=== PATIENT | female | born 2000 | race Caucasian/White ===

== ENCOUNTER 2022-12-12 07:35 | Inpatient (IN) ==
[2022-12-12] MEDS ORDERED: LIDOCAINE 1% LOCAL 20 ML VIAL INFIL PRN (08:59)
[2022-12-12] MEDS ORDERED: OXYTOCIN 30 UNITS/500 ML BAG IV PRN ×2 (08:59→23:27)
[2022-12-12] MEDS ORDERED: DINOPROSTONE 10 MG INSERT PV ONE (08:59)
[2022-12-12] MEDS ORDERED: ceFAZolin 2000MG 2,000 MG/15 ML SYR IV STA (09:04)
--- NOTE | 2022-12-12 09:25 | History & Physical Report ---
Date of Service December 12, 2022 Assessment & Plan (1) Post-term , 40-42 weeks of gestation: Plan: 22 yo at 40.6 wks, IOL for postdates VSS Afebrile FHR reassuring GBS +, mild allergy to amoxicillin, plan to give Cefazolin Plan to admit, monitor, labs, Cervidil for cervical ripening All questions were answered. (2) GBS (group B Streptococcus carrier), +RV culture, currently : (3) Brachial plexus injury, left: Plan: EFW 3700 gr today Admission and Anticipated Discharge Date Admission Date: December 12, 2022 History of Present Illness Primary Care Provider: NO PCP Patient is a 22 yo at 40.6 wks who is scheduled for IOL for postdates. No complaints. No ctxs/ LOF/VB +FM's Her has been uncomplicated except GBS+ h/o shoulder dystocia as a new born with left brachia plexus injury, she was a 9 lb infant She has been measuring normal during this . EFW by bed side US today is 3700 gr. Allergies Allergy/AdvReac Type Severity Reaction Status Date / Time amoxicillin [From Augmentin] Allergy Hives Verified 12/12/22 07:51 clavulanic acid Allergy Hives Verified 12/12/22 07:51 [From Augmentin] Home Medications Medication Instructions Recorded Confirmed Type albuterol sulfate 90 mcg/actuation 2 puff inhalation 6XD PRN 12/12/22 12/12/22 History aerosol inhaler Congestion docusate sodium 100 mg capsule 100 mg PO BID 12/12/22 12/12/22 History (Colace) ferrous sulfate 325 mg (65 mg 325 mg PO DAILY 12/12/22 12/12/22 History iron) tablet (iron) fluticasone propionate 50 1 spray intranasal DAILY 12/12/22 12/12/22 History mcg/actuation nasal spray,suspension prenat.vits,mellisa,[id number] 1 tab PO DAILY 12/12/22 12/12/22 History Patient History Medical History (Updated 12/12/22 @ 09:22 by Darci Pollock MD) Asthma Brachial plexus injury, left (~12/12/22) shoulder dystocia at Chronic rhinitis No pertinent past medical history Surgical History No pertinent past surgical history S/P tonsillectomy and adenoidectomy Family History Father Myocardial infarction Mother Hypothyroid Social History (Updated 12/12/22 @ 07:49 by Crys Mart RN) Smoking Status: Never smoker Hx Alcohol Use: No Hx Substance Use: No Preferred Language: Iranian Communication Ability: Effective Visual Impairment: No Limitations Hearing Ability: Normal Echocardiologist Required: No Beliefs That Will Affect Care: None marital status: Single Current Living Situation: Parent Current Living Situation Comment: Lives with mother, Sandeep and 3 cats current occupational status: employed 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 [place] Other Information That Helps Us Care for You: No Feels Safe at Home: Yes Safety Concerns: Feels Safe At This Time Childhood Exposure to Second-Hand Smoke: No Gender Identity: Female Assistive Devices: None RN OPERATING ROOM History No STD's Review of Systems as per Subjective / HPI Physical Exam Constitutional: well developed, well nourished and comfortable Gastrointestinal (Abdomen): normal bowel sounds, soft, nontender, no hepatosplenomegaly (gravid, Judson 8 lb) Genitourinary: normal external appearance OB Exam Abdomen: + vertex Manual OB Exam: + cervical dilation 1 cm, + cervical effacement 30% and + station -2 OB Exam Monitor Tracing: + external uterine monitor used and + category I Results & Data Vital Signs (Past 12 Hours) Vital Signs Temp Pulse Resp BP 12/12/22 08:13 37 C 83 20 117/73 12/12/22 07:42 83 117/73
[2022-12-12 09:28] LABS: Hematocrit (blood only) 32.5 % (37.0-47.0); Hemoglobin 11.2 g/dl (12.0-16.0); Mean Corpuscular Hemoglobin 30.2 pg (25.0-34.0); Mean Corpuscular Hgb Conc 34.5 g/dL (32.0-36.0); Mean Corpuscular Volume 87.6 fL (80.0-100.0); Mean Platelet Volume 12.1 fL (9.4-12.4); Platelet Count 154 K/uL (130-400); RDW Coefficient of Variation 13.2 % (11.5-14.5); RDW Standard Deviation 42.1 fL (36.4-46.3); Red Blood Count 3.71 M/uL (4.20-5.40); White Blood Count 9.83 K/ul (4.8-10.8)
--- NOTE | 2022-12-12 16:55 | Obstetrical Progress Note ---
Date of Service December 12, 2022 Assessment & Plan Admission and Anticipated Discharge Date Admission Date: December 12, 2022 Subjective Patient has been walking in hallways comfortably. Mild irregular ctxs, not painful No LOF/VB +VB FHR categ I Continue to monitor closely Results & Data Vital Signs (Past 12 Hours) Vital Signs Temp Pulse Resp BP 12/12/22 15:45 37 C 20 12/12/22 08:13 37 C 83 20 117/73 12/12/22 15:12 62 12/12/22 15:12 124/81 12/12/22 14:02 63 12/12/22 14:02 121/77 12/12/22 12:06 71 12/12/22 12:06 36.9 C 20 117/68 12/12/22 10:49 74 12/12/22 10:49 114/70 12/12/22 10:36 83 12/12/22 10:36 111/71 12/12/22 10:13 76 12/12/22 10:13 116/76 12/12/22 07:42 83 117/73
[2022-12-12] MEDS ORDERED: BUTORPHANOL TARTRATE 1 MG/ML VIAL IV PRN (17:35)
--- NOTE | 2022-12-13 00:17 | Obstetrical Progress Note ---
Date of Service December 13, 2022 Assessment & Plan Admission and Anticipated Discharge Date Admission Date: December 12, 2022 Subjective Late entry from 23:30 Patient has been feeling ctxs more often and stronger for the last 2 hours Cervidil was removed and she ate dinner No LOF/VB +FM's VE; 2/ 50%/ -2, anterior FHR categ I TOCO: ctxs q 3-5 min, palpated mild to moderate Plan to augment with Oxytocin and start AB for GBS Epidural per patient request Results & Data Vital Signs (Past 12 Hours) Vital Signs Temp Pulse Resp BP 12/12/22 15:45 37 C 20 12/12/22 23:19 68 12/12/22 23:19 130/80 12/12/22 20:00 18 12/12/22 20:00 18 12/12/22 19:30 18 12/12/22 19:30 36.7 C 18 12/12/22 19:28 85 12/12/22 19:28 137/87 12/12/22 17:42 72 12/12/22 17:42 37 C 20 134/87 12/12/22 15:12 62 12/12/22 15:12 124/81 12/12/22 14:02 63 12/12/22 14:02 121/77
[2022-12-13] MEDS ORDERED: fentaNYL citrate PF 100 MCG/2 ML VIAL ONE (06:00)
[2022-12-13] MEDS ORDERED: ePHEDrine sulfate 50 MG/ML AMP ONE (06:00)
[2022-12-13] MEDS ORDERED: BUPIVACAINE 0.25% PF 30 ML VIAL ONE (06:01)
[2022-12-13] MEDS ORDERED: LIDOCAINE 2%/EPINEPHRINE 1:200,000 20 ML PF ONE (06:01)
[2022-12-13] MEDS ORDERED: SODIUM CHLORIDE 0.9% PF INJ 10 ML VIAL ONE (06:01)
[2022-12-13] MEDS ORDERED: fentaNYL 2MCG/ML ROPIVACAINE 1.25MG/ML 100 ML BAG EPI ONE (06:02)
[2022-12-13] MEDS ORDERED: ONDANSETRON INJ 2 MG/ML 2 ML VIAL IV PRN (06:24)
[2022-12-13] MEDS ORDERED: ePHEDrine sulfate 50 MG/ML AMP IV PRN (06:24)
[2022-12-13] MEDS ORDERED: fentaNYL 2MCG/ML ROPIVACAINE 1.25MG/ML 100 ML BAG EPI PRN (06:24)
[2022-12-13] MEDS ORDERED: NALOXONE HCL 1 MG in SODIUM CHLORIDE 0.9% 1000ML 1,000 ML IV PRN (06:24)
[2022-12-13] MEDS ORDERED: NALOXONE HCL 0.4 MG/1 ML VIAL/CARP IV PRN (06:24)
[2022-12-13] MEDS ORDERED: diphenhydrAMINE 50 MG/ML VIAL IV PRN (06:24)
[2022-12-13] MEDS ORDERED: NALBUPHINE HCL INJ 10 MG/ML AMP IV PRN (06:24)
--- NOTE | 2022-12-13 06:24 | Anesthesiology Consultation ---
Date of Service December 13, 2022 Assessment & Plan ASA ASA2 Proposed Anesthesia Anesthesia Type: Labor Epidural Risk / Benefits Reviewed With: PT / POA / Parent / Guardian, Accepts Plan and Informed Consent Obtained History Height/Weight Height: 5 ft 6 in Weight: 107.774 kg Allergies Allergy/AdvReac Type Severity Reaction Status Date / Time amoxicillin [From Augmentin] Allergy Hives Verified 12/12/22 07:51 clavulanic acid Allergy Hives Verified 12/12/22 07:51 [From Augmentin] Medications Home Medications Medication Instructions Recorded Confirmed Last Taken albuterol sulfate 90 mcg/actuation 2 puff inhalation 6XD PRN 12/12/22 12/12/22 Unknown aerosol inhaler Congestion docusate sodium 100 mg capsule 100 mg PO BID 12/12/22 12/12/22 11/29/22 19:30 (Colace) ferrous sulfate 325 mg (65 mg 325 mg PO DAILY 12/12/22 12/12/22 12/11/22 19:30 iron) tablet (iron) fluticasone propionate 50 1 spray intranasal DAILY 12/12/22 12/12/22 12/06/22 19:30 mcg/actuation nasal spray,suspension prenat.vits,mellisa,[id number] 1 tab PO DAILY 12/12/22 12/12/22 12/11/22 19:30 Active Medications Generic Name Dose Route Start Last Admin Trade Name Freq PRN Reason Stop Dose Admin Lactated Ringer's 1,000 mls @ 150 mls/hr 12/12/22 08:59 12/13/22 11:06 Lr IV 12/14/22 08:58 150 mls/hr .Q6H40M PRN Administration L&D Protocol Protocol Oxytocin 30 units in 500 mls @ 13 mls/hr 12/12/22 23:27 12/13/22 09:40 Pitocin IV 12/14/22 23:26 0.78 units/hr .Q24H PRN 13 mls/hr Labor Induction/Augmentation Titration Protocol 0.78 UNITS/HR Cefazolin Sodium 2,000 mg in 15 mls @ 3.75 mls/min 12/13/22 08:00 12/13/22 08:05 Ancef 2000mg IV 12/23/22 07:59 3.75 mls/min Q8H ALEX Administration Ibuprofen 600 mg 12/13/22 12:54 12/13/22 15:14 Ibuprofen 600 Mg Tab PO 01/12/23 12:53 600 mg Q4H PRN Administration Pain/OLMSTEAD/Cramping/Fever Ondansetron HCl 4 mg 12/13/22 06:24 12/13/22 08:43 Ondansetron Inj 2 Mg/Ml 2 Ml Vial IV 12/14/22 06:23 4 mg Q6H PRN Administration Nausea &/or Vomiting Past Medical History Medical History (Updated 12/12/22 @ 09:22 by Darci Pollcok MD) Asthma Brachial plexus injury, left (~12/12/22) shoulder dystocia at Chronic rhinitis No pertinent past medical history Exercise / Class Metabolic Activity II 4-5 Yardwork/Stairs/Walk up hill Past Family History Family History Father Myocardial infarction Mother Hypothyroid Past Surgical History Surgical History No pertinent past surgical history S/P tonsillectomy and adenoidectomy Past Anesthesia History No Hx of Anesthesia Complications and No Family Hx of Anesthesia Complications History of PONV No Hx of PONV and No Hx of Motion Sickness Social History Smoking Status: Never smoker Hx Alcohol Use: No Hx Substance Use: No substance use type: does not use Review of Systems denies fever/cough/ colds/ chest pain/ SOB/ SHARON denies SHARON Physical Exam Vital Signs Last Vital Signs Temp 36.8 C 12/13/22 16:00 Pulse 74 12/13/22 16:00 Resp 16 12/13/22 16:00 BP 120/82 12/13/22 16:00 Pulse Ox 99 12/13/22 16:00 O2 Del Method Room Air 12/13/22 16:00 ENMT Mouth: no TMJ abnormality and no dentition abnormality Thyromental Distance: > or= 3.5 Finger Breadths Mallampati Class: II Neck neck extension not limited Respiratory normal respiratory effort; no respiratory distress Auscultation: lungs clear to auscultation bilaterally Cardiovascular Rate/Rhythm: regular rate and regular rhythm Neurologic moves all extremities Psychiatric Orientation: alert and oriented x 3 Testing Laboratory Results 12/12/22 09:11 Blood Type A Positive 12/12/22 09:11 Blood Type Cancelled 12/12/22 09:11 Antibody Screen Cancelled 12/12/22 09:11 Antibody Screen NEGATIVE 12/12/22 09:11
[2022-12-13] MEDS: LACTATED RINGER'S 1,000 ML IV PRN ×3 (06:38→11:06)
--- NOTE | 2022-12-13 07:35 | Obstetrical Progress Note ---
Date of Service December 13, 2022 Assessment & Plan Admission and Anticipated Discharge Date Admission Date: December 12, 2022 Subjective Patient is comfortable now, received epidural for pain. VSS Afebrile FHR categ I Mcdermott ctxs q 2-3 min VE: 3/ 70%/-1, AROM'ed clear fluid Continue to augment with Oxytocin and monitor closely Results & Data Vital Signs (Past 12 Hours) Vital Signs Temp Pulse Resp BP Pulse Ox 12/13/22 07:33 83 120/87 12/13/22 07:31 71 95 12/13/22 07:30 76 116/83 94 12/13/22 07:26 72 95 12/13/22 07:27 63 117/76 12/13/22 07:24 80 113/76 12/13/22 07:21 95 12/13/22 07:21 82 12/13/22 07:21 79 121/82 12/13/22 07:18 76 125/71 12/13/22 07:16 94 H 96 12/13/22 07:15 75 124/75 12/13/22 07:13 79 94 12/13/22 07:11 81 96 12/13/22 07:12 84 121/73 12/13/22 07:09 84 134/69 12/13/22 07:08 88 94 12/13/22 07:06 101 H 96 12/13/22 07:03 97 H 127/74 12/13/22 07:01 95 H 96 12/13/22 07:00 101 H 123/78 12/13/22 06:56 87 95 12/13/22 06:57 85 120/71 12/13/22 06:54 84 120/75 12/13/22 06:51 97 12/13/22 06:51 87 12/13/22 06:51 90 129/78 12/13/22 06:48 82 126/82 12/13/22 06:46 86 98 12/13/22 06:45 93 H 136/82 12/13/22 06:41 86 98 12/13/22 06:42 77 126/71 12/13/22 06:36 86 100 12/13/22 06:00 93 H 125/77 12/13/22 05:40 229 H 90 12/13/22 05:31 196 H 87 L 12/13/22 05:01 77 138/86 12/13/22 04:31 63 122/75 12/13/22 03:16 68 107/63 12/13/22 02:46 63 113/57 L 12/13/22 02:17 65 109/64 12/13/22 01:46 68 106/60 12/13/22 01:16 65 118/63 12/13/22 00:46 66 107/58 L 12/13/22 00:00 18 12/13/22 00:00 36.7 C 18 12/13/22 00:16 87 122/62 12/12/22 23:19 68 12/12/22 23:19 130/80 12/12/22 20:00 18 12/12/22 20:00 18
[2022-12-13] MEDS ORDERED: ceFAZolin 2000MG 2,000 MG/15 ML SYR IV SCH (08:00)
[2022-12-13] MEDS ORDERED: ALBUTEROL HFA 8 GM INHALER INH PRN (12:53)
[2022-12-13] MEDS ORDERED: ACETAMINOPHEN 325 MG TAB PO PRN (12:54)
[2022-12-13] MEDS ORDERED: oxyCODONE/ACETAMINOPHEN 5mg/325mg TAB PO PRN (12:54)
[2022-12-13] MEDS ORDERED: DIPHTHERIA/TETANUS/PERTUSSIS 0.5mL SYR/VIAL (Age 7+yrs) IM ONE (12:54)
[2022-12-13] MEDS ORDERED: BENZOCAINE 20% AER SPR 82.5 GM CAN EXT PRN (12:54)
[2022-12-13] MEDS ORDERED: HYDROCORTISONE ACETATE 25 MG SUPP PR PRN (12:54)
[2022-12-13] MEDS ORDERED: OXYTOCIN 30 UNITS/500 ML BAG IV PRN (12:54)
--- NOTE | 2022-12-13 12:56 | Delivery Summary ---
Vaginal Delivery Summary Date of Service December 13, 2022 Vaginal Delivery Summary Delivery Note History synopsis: Patient is a 22-year-old -0-1-0 admitted at 40 weeks and 6 days for induction of labor for postterm. She received Cervidil on admission, progressed to 2 cm and started on oxytocin for augmentation. She received an epidural for pain control and review received AROM with clear fluid earlier this morning and was 3 cm. Patient continued to have early decelerations, it was noted to be complete by nursing staff this afternoon. Was called for delivery Delivery Summary: Patient was placed in the dorsal lithotomy position. She was prepped and draped in the usual sterile fashion. Upon maternal pushing the head was delivered atraumatically followed by the anterior shoulders, posterior shoulders then the remainder of the infants body. The infant was immediately placed on mother's abdomen, dried and stimulated. Delayed cord clamping for 60 seconds was performed. The infants mouth and nose were bulb suctioned by nursing staff. A male was delivered at 1235, weighing pending with APGARS of 8 at 1 minute and 9 at 5 minutes. The was handed off to the awaiting nursing staff staff. Cord blood gases were not obtained. The placenta delivered intact with three vessel cord at 1240. Placenta was sent to pathology (hold). Thirty units of Pitocin were added to the IV fluid and allowed to run freely. Uterine massage was performed until uterus was deemed firm. Upon inspection of the perineum, hemostatic periurethral laceration was noted, and a second-degree degree laceration which was repaired with 3-0 Vicryl in the usual fashion. Periurethral laceration was still hemostatic, therefore not repaired. Upon re- inspection the patient was hemostatic. Uterus again massaged and found to be firm. Needle and sponge counts were correct. Patient was stable and allowed to recover in L&D room. Infant was stable and remained in room with mother in the labor and delivery unit.
--- NOTE | 2022-12-13 13:46 | Anesthesia Procedure Note ---
Date of Service December 13, 2022 Anesthesia Post Epidural Note Vital Signs Vital Signs: Temp Pulse Resp BP Pulse Ox 36.7 C 67 20 112/69 98 12/13/22 11:31 12/13/22 13:40 12/13/22 13:40 12/13/22 13:40 12/13/22 12:46 Pain Intensity Lower Abdomen: Pain Intensity: 0 Notes Mental Status: alert / awake / arousable Nausea / Vomiting: adequately controlled Pain: adequately controlled Airway Patency, RR, SpO2: stable & adequate BP & HR: stable & adequate Hydration State: stable & adequate Neuraxial Anesthesia: was administered and sensory block is resolving Anesthetic Complications: no major complications apparent and Pt Satisfied with anesthetic care Epidural: Removed without complications and With tip intact
[2022-12-13] MEDS: IBUPROFEN 600 MG TAB PO PRN ×2 (15:14→21:04)
[2022-12-13] MEDS: DOCUSATE SODIUM 100 MG CAP PO SCH (21:04)
[2022-12-14 07:29] LABS: Hematocrit (blood only) 31.7 % (37.0-47.0); Hemoglobin 10.5 g/dl (12.0-16.0); Mean Corpuscular Hemoglobin 29.4 pg (25.0-34.0); Mean Corpuscular Hgb Conc 33.1 g/dL (32.0-36.0); Mean Corpuscular Volume 88.8 fL (80.0-100.0); Mean Platelet Volume 12.4 fL (9.4-12.4); Platelet Count 151 K/uL (130-400); RDW Coefficient of Variation 13.2 % (11.5-14.5); Red Blood Count 3.57 M/uL (4.20-5.40)
--- NOTE | 2022-12-14 08:33 | Obstetrical Progress Note ---
Date of Service December 14, 2022 Assessment & Plan Admission and Anticipated Discharge Date Admission Date: December 12, 2022 Subjective Patient is seen and examined. She feels well, no complaints. Ambulating without dizziness Voiding without difficulty Tolerating regular diet with out N&V Bleeding is minimal No fever/ chills/ CP/ SOB/ N&V/ Leg pain Breast feeding without problems Vital Signs Temp Pulse Resp BP Pulse Ox O2 Del Method 12/14/22 03:55 36.5 C 66 16 116/68 98 Room Air 12/14/22 00:10 36.7 C 68 16 106/69 98 Room Air 12/13/22 20:40 36.8 C 73 16 113/77 98 Room Air Lab Results 12/12/22 12/12/22 12/12/22 Range/Units 08:35 09:11 09:11 WBC 9.83 (4.8-10.8) K/ul RBC 3.71 L (4.20-5.40) M/uL Hgb 11.2 L (12.0-16.0) g/dl Hct 32.5 L (37.0-47.0) % MCV 87.6 (80.0-100.0) fL MCH 30.2 (25.0-34.0) pg MCHC 34.5 (32.0-36.0) g/dL RDW Std Deviation 42.1 (36.4-46.3) fL RDW Coeff of Ethan 13.2 (11.5-14.5) % Plt Count 154 (130-400) K/uL MPV 12.1 (9.4-12.4) fL SARS-CoV-2, RNA, NAAT NEGATIVE (NEGATIVE) Blood Type A Positive Antibody Screen NEGATIVE 12/12/22 12/14/22 Range/Units 09:11 06:39 WBC 10.90 H (4.8-10.8) K/ul RBC 3.57 L (4.20-5.40) M/uL Hgb 10.5 L (12.0-16.0) g/dl Hct 31.7 L (37.0-47.0) % MCV 88.8 (80.0-100.0) fL MCH 29.4 (25.0-34.0) pg MCHC 33.1 (32.0-36.0) g/dL RDW Std Deviation 43.0 (36.4-46.3) fL RDW Coeff of Ethan 13.2 (11.5-14.5) % Plt Count 151 (130-400) K/uL MPV 12.4 (9.4-12.4) fL SARS-CoV-2, RNA, NAAT (NEGATIVE) Blood Type Cancelled Antibody Screen Cancelled PE: General: Alert, orientedx3, NAD Abd: soft, NT, fundus firm, below Umbilicus Perineum intact, Lochia rubra minimal Ext; NT, no edema AP: 22 yo s/p , ppd# 1 VSS Afebrile doing well Continue routine care All questions were answered D/C home tomorrow Results & Data Vital Signs (Past 12 Hours) Vital Signs Temp Pulse Resp BP Pulse Ox O2 Del Method 12/14/22 03:55 36.5 C 66 16 116/68 98 Room Air 12/14/22 00:10 36.7 C 68 16 106/69 98 Room Air 12/13/22 20:40 36.8 C 73 16 113/77 98 Room Air
[2022-12-14] MEDS: IBUPROFEN 600 MG TAB PO PRN ×2 (09:38→23:29)
[2022-12-14] MEDS: DOCUSATE SODIUM 100 MG CAP PO SCH ×2 (09:39→20:10)
[2022-12-14] MEDS: PRENATAL VITAMIN 1 TAB PO SCH (09:39)
[2022-12-14] MEDS ORDERED: bisacodyL 5 MG TABEC PO SCH (20:00)
[2022-12-14] MEDS: FERROUS SULFATE 325 MG TAB PO SCH (20:10)
[2022-12-15 06:53] LABS: Hematocrit (blood only) 30.1 % (37.0-47.0); Hemoglobin 9.9 g/dl (12.0-16.0)
[2022-12-15] MEDS: DOCUSATE SODIUM 100 MG CAP PO SCH (08:48)
[2022-12-15] MEDS: FERROUS SULFATE 325 MG TAB PO SCH (08:48)
[2022-12-15] MEDS: PRENATAL VITAMIN 1 TAB PO SCH (08:48)
--- NOTE | 2022-12-15 10:43 | Obstetrical Progress Note ---
Date of Service December 15, 2022 Assessment & Plan Admission and Anticipated Discharge Date Admission Date: December 12, 2022 Subjective Patient is seen and examined. She feels well, no complaints. Ambulating without dizziness Voiding without difficulty Tolerating regular diet with out N&V Bleeding is minimal No fever/ chills/ CP/ SOB/ N&V/ Leg pain Breast feeding without problems Vital Signs Temp Pulse Resp BP O2 Del Method 12/15/22 08:30 37 C 94 H 18 118/87 Room Air 12/14/22 23:27 36.6 C 76 16 107/71 Room Air 12/14/22 20:01 36.9 C 80 16 110/74 Room Air 12/14/22 17:19 36.8 C 70 17 117/74 Room Air 12/14/22 12:00 37 C 74 20 118/76 Room Air Lab Results 12/12/22 12/12/22 12/12/22 Range/Units 08:35 09:11 09:11 WBC 9.83 (4.8-10.8) K/ul RBC 3.71 L (4.20-5.40) M/uL Hgb 11.2 L (12.0-16.0) g/dl Hct 32.5 L (37.0-47.0) % MCV 87.6 (80.0-100.0) fL MCH 30.2 (25.0-34.0) pg MCHC 34.5 (32.0-36.0) g/dL RDW Std Deviation 42.1 (36.4-46.3) fL RDW Coeff of Ethan 13.2 (11.5-14.5) % Plt Count 154 (130-400) K/uL MPV 12.1 (9.4-12.4) fL SARS-CoV-2, RNA, NAAT NEGATIVE (NEGATIVE) Blood Type A Positive Antibody Screen NEGATIVE 12/12/22 12/14/22 12/15/22 Range/Units 09:11 06:39 06:08 WBC 10.90 H (4.8-10.8) K/ul RBC 3.57 L (4.20-5.40) M/uL Hgb 10.5 L 9.9 L (12.0-16.0) g/dl Hct 31.7 L 30.1 L (37.0-47.0) % MCV 88.8 (80.0-100.0) fL MCH 29.4 (25.0-34.0) pg MCHC 33.1 (32.0-36.0) g/dL RDW Std Deviation 43.0 (36.4-46.3) fL RDW Coeff of Ethan 13.2 (11.5-14.5) % Plt Count 151 (130-400) K/uL MPV 12.4 (9.4-12.4) fL SARS-CoV-2, RNA, NAAT (NEGATIVE) Blood Type Cancelled Antibody Screen Cancelled PE: General: Alert, orientedx3, NAD Abd: soft, NT, fundus firm, below Umbilicus Perineum intact, Lochia rubra minimal Infected hair follicle at mons pubis Ext; NT, no edema AP: 22 yo s/p , ppd# 2 VSS Afebrile doing well Continue routine care All questions were answered Discussed when to call D/C home , f/u in office Results & Data Vital Signs (Past 12 Hours) Vital Signs Temp Pulse Resp BP O2 Del Method 12/15/22 08:30 37 C 94 H 18 118/87 Room Air 12/14/22 23:27 36.6 C 76 16 107/71 Room Air
[2022-12-15] MEDS ORDERED: cephALEXin 500 MG CAP PO STA (10:45)
== END 2022-12-15 13:10 | disposition home or self-care (01) | DRG 807 ==
LOC: 4S1 07:35 → 4E2 12-13 16:37

== ENCOUNTER 2024-10-08 12:05 | Inpatient (IN) ==
[2024-10-08] MEDS ORDERED: OXYTOCIN 30 UNITS/NSS 30 UNITS/500 ML BAG IV PRN (15:22)
[2024-10-08] MEDS ORDERED: LIDOCAINE 1% LOCAL 20 ML VIAL INFIL PRN (15:22)
--- NOTE | 2024-10-08 15:28 | History & Physical Report ---
Date of Service October 08, 2024 Assessment & Plan (1) Encounter for elective induction of labor: Plan: Anguiano and Oxytocin planned (2) GBS (group B Streptococcus carrier), +RV culture, currently : Plan: Antibiotics Admission and Anticipated Discharge Date Admission Date: October 08, 2024 History of Present Illness Chief Complaint: elective induction of labor Primary Care Provider: [facility] PCP 24 F P1001 at 40.1 weeks here for elective induction of labor. GBS is positive. Allergies Allergy/AdvReac Type Severity Reaction Status Date / Time amoxicillin [From Augmentin] Allergy Mild Rash Verified 10/08/24 15:21 clavulanic acid Allergy Mild Rash Verified 10/08/24 15:21 [From Augmentin] Home Medications Medication Instructions Recorded Confirmed Type albuterol sulfate 90 mcg/actuation 2 puff inhalation 6XD PRN 12/12/22 10/08/24 History aerosol inhaler Congestion fluticasone propionate 50 1 spray intranasal DAILY PRN 12/12/22 10/08/24 History mcg/actuation nasal Congestion spray,suspension prenat.vits,mellisa,[id number] 1 tab PO DAILY 12/12/22 10/08/24 History Patient History Medical History GBS (group B Streptococcus carrier), +RV culture, currently Post-term , 40-42 weeks of gestation Brachial plexus injury, left (~12/12/22) shoulder dystocia at Chronic rhinitis Asthma No pertinent past medical history Surgical History S/P tonsillectomy and adenoidectomy No pertinent past surgical history Family History Father Myocardial infarction Mother Hypothyroid Social History Smoking Status: Never smoker Hx Alcohol Use: No Hx Substance Use: No Preferred Language: [place] Communication Ability: Effective Visual Impairment: No Limitations Hearing Ability: Normal Cooker Mechanic Required: No Beliefs That Will Affect Care: None marital status: Single Current Living Situation: Spouse Current Living Situation Comment: 2yo son current occupational status: employed 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 [place] Feels Safe at Home: Yes Safety Concerns: Feels Safe At This Time Childhood Exposure to Second-Hand Smoke: No Diet: regular Gender Identity: Female Assistive Devices: None 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 History neg Physical Exam Constitutional: WD/WN, vitals as above Eyes: PERRL, conjunctivae normal, anicteric sclerae Respiratory: normal respiratory effort, lungs clear to auscultation Cardiovascular: Rate/Rhythm: regular rate and regular rhythm Gastrointestinal (Abdomen): Inspection/Auscultation: abdomen normal to inspection Musculoskeletal: Extremities: extremities normal to inspection Skin: no rashes, warm and dry Neurologic: patellar DTR's 2+ bilat, sensation intact Psychiatric: A+Ox3, euthymic affect Genitourinary: no vaginal lesions, no adnexal mass OB Exam Abdomen: + fundal height and + vertex Manual OB Exam: + cervical dilation 1 cm, + cervical effacement 50% and + station high OB Exam Monitor Tracing: + external FHT monitor used, + external uterine monitor used, + category I and + normal FHT variability EFW 7 lbs. Results & Data Vital Signs (Past 12 Hours) Vital Signs Temp Pulse Resp BP 10/08/24 15:07 81 123/78 10/08/24 14:59 37.1 C 18 Code Status & VTE Plan VTE Prophylaxis Plan VTE Prophylaxis will be ordered: No Monitoring External Monitor Cat 1
[2024-10-08 15:54] LABS: Hematocrit (blood only) 33.4 % (37.0-47.0); Mean Corpuscular Hemoglobin 29.2 pg (25.0-34.0); Mean Corpuscular Hgb Conc 32.9 g/dL (32.0-36.0); Mean Corpuscular Volume 88.6 fL (80.0-100.0); Platelet Count 166 K/uL (130-400); RDW Coefficient of Variation 12.5 % (11.5-14.5); RDW Standard Deviation 40.2 fL (36.4-46.3); Red Blood Count 3.77 M/uL (4.20-5.40); White Blood Count 10.55 K/ul (4.8-10.8)
--- NOTE | 2024-10-08 16:09 | Labor Progress Brief Note ---
Date of Service October 08, 2024 Assessment & Plan Admission and Anticipated Discharge Date Admission Date: October 08, 2024 Physical Exam Genitourinary: OB Exam Monitor Tracing: + external FHT monitor used, + external uterine monitor used, + category I and + normal FHT variability Anguiano placed in cervix with 40 ml. saline for induction Will start Oxytocin and antibiotics Results & Data Vital Signs (Past 12 Hours) Vital Signs Temp Pulse Resp BP 10/08/24 15:07 81 123/78 10/08/24 14:59 37.1 C 18
[2024-10-08] MEDS: PENICILLIN GK 6 MU in SODIUM CHLORIDE 0.9% 250 ML IV STA (16:37)
[2024-10-08] MEDS: OXYTOCIN 30 UNITS/NSS 30 UNITS/500 ML BAG IV PRN (16:37)
[2024-10-08] MEDS: SODIUM CHLORIDE 0.9% 1,000 ML IV SCH (16:37)
[2024-10-08] MEDS ORDERED: ePHEDrine sulfate 50 MG/ML AMP ONE (20:15)
[2024-10-08] MEDS: PENICILLIN GK 3 MU in DEXTROSE 5% 100 ML IV PRN (20:34)
[2024-10-08] MEDS ORDERED: fentANYL 2 MCG/ML BUPIVacaine 0.125%-NSS 100ML BAG EPI PRN (21:38)
[2024-10-08] MEDS ORDERED: ePHEDrine sulfate 50 MG/ML AMP IV PRN (21:38)
[2024-10-08] MEDS ORDERED: diphenhydrAMINE 50 MG/ML VIAL IV PRN (21:38)
[2024-10-08] MEDS ORDERED: ROPIVACAINE 0.5% PF 5 MG/ML 20 ML VIAL EPI PRN (21:38)
[2024-10-08] MEDS ORDERED: SODIUM CHLORIDE 0.9% PF INJ 10 ML VIAL EPI PRN (21:38)
[2024-10-08] MEDS ORDERED: fentaNYL citrate PF 100 MCG/2 ML VIAL EPI PRN (21:38)
[2024-10-08] MEDS ORDERED: LIDOCAINE 2% MPF LOCAL 5 ML VIAL EPI PRN (21:38)
[2024-10-08] MEDS ORDERED: NALOXONE HCL 1 MG in SODIUM CHLORIDE 0.9% 1,000 ML IV PRN (21:38)
[2024-10-08] MEDS ORDERED: NALBUPHINE HCL INJ 10 MG/ML AMP IV PRN (21:38)
[2024-10-08] MEDS ORDERED: BUPIVACAINE 0.25% PF 30 ML VIAL EPI PRN (21:38)
[2024-10-08] MEDS ORDERED: NALOXONE HCL 0.4 MG/1 ML VIAL/CARP IV PRN (21:38)
--- NOTE | 2024-10-08 21:38 | Anesthesiology Consultation ---
Date of Service October 08, 2024 Assessment & Plan (1) Encounter for pre-operative examination: Chart Review Chart Review: Patient NOT seen in Pre Admission Testing and Acceptable Risk for Labor Epidural Consults Requested none History Height/Weight Height: 5 ft 6 in Weight: 105.687 kg Allergies Allergy/AdvReac Type Severity Reaction Status Date / Time amoxicillin [From Augmentin] Allergy Mild Rash Verified 10/08/24 15:21 clavulanic acid Allergy Mild Rash Verified 10/08/24 15:21 [From Augmentin] Medications Home Medications Medication Instructions Recorded Confirmed Last Taken albuterol sulfate 90 mcg/actuation 2 puff inhalation 6XD PRN 12/12/22 10/08/24 Unknown aerosol inhaler Congestion fluticasone propionate 50 1 spray intranasal DAILY PRN 12/12/22 10/08/24 12/06/22 19:30 mcg/actuation nasal Congestion spray,suspension prenat.vits,mellisa,[id number] 1 tab PO DAILY 12/12/22 10/08/24 10/07/24 Active Medications Generic Name Dose Route Start Last Admin Trade Name Freq PRN Reason Stop Dose Admin Penicillin G Potassium 3 mu/ 106 mls @ 100 mls/hr 10/08/24 18:22 10/08/24 20:34 Dextrose IV 10/18/24 18:21 100 mls/hr Q4H PRN Administration GBS(+) Until Delivery Oxytocin 30 units in 500 mls @ 7 mls/hr 10/08/24 15:37 10/08/24 20:20 Pitocin 30 Units/Nss IV 10/10/24 15:36 0.42 units/hr .Q24H PRN 7 mls/hr Labor Induction/Augmentation Titration Protocol 0.42 UNITS/HR Sodium Chloride 1,000 mls @ 125 mls/hr 10/08/24 16:45 10/08/24 20:34 Nss IV 10/09/24 16:44 0 mls/hr .Q8H ALEX Infusion Past Medical History Medical History GBS (group B Streptococcus carrier), +RV culture, currently Post-term , 40-42 weeks of gestation Brachial plexus injury, left (~12/12/22) shoulder dystocia at Chronic rhinitis Asthma No pertinent past medical history Past Family History Family History Father Myocardial infarction Mother Hypothyroid Past Surgical History Surgical History S/P tonsillectomy and adenoidectomy No pertinent past surgical history Social History Smoking Status: Never smoker Hx Alcohol Use: No Hx Substance Use: No substance use type: does not use Physical Exam Vital Signs Last Vital Signs Temp 98.4 F 10/08/24 19:05 Pulse 84 10/08/24 21:15 Resp 18 10/08/24 19:05 BP 126/84 10/08/24 21:15 Testing Laboratory Results 10/08/24 15:33 Blood Type A Positive 10/08/24 15:33 Antibody Screen NEGATIVE 10/08/24 15:33
[2024-10-08] MEDS: BUPIVACAINE 0.25% PF 30 ML VIAL ONE (21:53)
[2024-10-08] MEDS: fentANYL 2 MCG/ML BUPIVacaine 0.125%-NSS 100ML BAG ONE (21:53)
[2024-10-08] MEDS: LIDOCAINE 2%/EPINEPHRINE 1:200,000 20 ML PF ONE (21:53)
[2024-10-08] MEDS: fentaNYL citrate PF 100 MCG/2 ML VIAL ONE (21:54)
[2024-10-08] MEDS: fentaNYL citrate PF 100 MCG/2 ML VIAL EPI STA (22:31)
[2024-10-08] MEDS: LIDOCAINE 2%/EPINEPHRINE 1:200,000 20 ML PF EPI STA (22:31)
[2024-10-08] MEDS: BUPIVACAINE 0.25% PF 30 ML VIAL EPI STA (22:32)
[2024-10-08] MEDS: SODIUM CHLORIDE 0.9% PF INJ 10 ML VIAL EPI STA (22:32)
[2024-10-08] MEDS: SODIUM CHLORIDE 0.9% PF INJ 10 ML VIAL ONE (22:33)
--- NOTE | 2024-10-08 22:54 | Labor Progress Brief Note ---
Date of Service October 08, 2024 Assessment & Plan Admission and Anticipated Discharge Date Admission Date: October 08, 2024 Physical Exam Genitourinary: Manual OB Exam: + cervical dilation 4 cm, + cervical effacement 70%, + station -2 and + amniotic fluid clear OB Exam Monitor Tracing: + external FHT monitor used, + external uterine monitor used, + category I and + normal FHT variability AROM with Amni-hook clear fluid Results & Data Vital Signs (Past 12 Hours) Vital Signs Temp Pulse Resp BP Pulse Ox 10/08/24 22:51 74 100 10/08/24 22:46 86 99 10/08/24 22:41 74 99 10/08/24 22:40 76 106/73 10/08/24 22:36 76 99 10/08/24 22:31 79 99 10/08/24 22:30 18 10/08/24 22:30 18 10/08/24 22:26 75 99 10/08/24 22:24 78 112/70 10/08/24 22:21 74 99 10/08/24 22:20 75 108/68 10/08/24 22:15 100 10/08/24 22:15 77 10/08/24 22:15 72 108/67 10/08/24 22:10 74 100 10/08/24 22:09 90 115/71 10/08/24 22:05 83 100 10/08/24 22:04 81 113/68 10/08/24 22:01 80 16 108/66 10/08/24 22:00 18 10/08/24 22:00 85 99 10/08/24 21:59 82 107/70 10/08/24 21:58 76 107/70 10/08/24 21:55 82 110/68 99 10/08/24 21:54 83 110/68 10/08/24 21:52 90 114/67 10/08/24 21:50 74 110/70 98 10/08/24 21:48 74 114/65 10/08/24 21:45 76 100 10/08/24 21:40 101 H 100 10/08/24 21:15 84 126/84 10/08/24 20:01 67 130/89 10/08/24 19:10 76 138/90 10/08/24 19:05 36.9 C 18 10/08/24 18:37 75 117/64 10/08/24 15:07 81 123/78 10/08/24 14:59 37.1 C 18
--- OUTSIDE RECORDS SUMMARY | 2024-10-08 23:38 | External Medical Summary | Summary of Care ---
Author Name Unknown Organization [facility] Address [address] [facility] [place] [address] Phone [phone] Care Team Providers Care Patient Sitter Name Role Phone Rusty Horton MD Primary Care Provider +1- [phone] Reason for Visit * Reason Comments Return Visit Encounter Details Date Type Department Care Team (Late st Contact Info) Description 08/18/2024 8:15 AM EST Office Visit Gynecology/Obstetric s [facility] [address] [place] [address] Jordyn Corbett CRNP [address] [place] [address] Supervision of other normal , antepartum*; Obesity in , antepartum Allergies Active Allergy Reactions Criticality Noted Date Comments Amoxicillin-Pot Clavulanate Hives 08/05/20 21 Dust Other (Please comment) High 07/11/2014 documented as of this encounter (statuses as of 08/18/2024) Medications EpiPen 2-Yusuf 0.3 MG/0.3ML Injection Solution Auto-injectorInd ications:Allergi c reaction, initial encounter For a severe reaction: Place orange end against the outer thigh, press firmly, hold in place for 10 seconds and go to the Emergency room. 1 Each 2 Active Albuterol Sulfate HFA 108 (90 Base) MCG/ACT Inhalation Aerosol SolutionIndicati ons:Upper respiratory tract infection, unspecified type,Wheezing Inhale 2 Puffs by mouth every 4 hours as needed for Congestion, Cough or Wheezing. 18 g 2 Active Fluticasone Propionate 50 MCG/ACT Nasal Suspension (Flonase)Indicat ions:Other allergic rhinitis 2 squirts each nostril daily at bedtime 16 g 3 Active 28-0.8 MG Oral Tablet Take by mouth. Active documented as of this encounter (statuses as of 08/18/2024) Active Problems Problem Noted Date Diagnosed Date Obesity in , antepartum 05/03/2024 Overview (05/03/2024): Class 1 The patient's pre-gravid BMI is 30.20. Supervision of other normal , antepartu m 03/25/2024 Food insecurity 03/08/2024 Overview: Per [facility] Protocol Anxiety 07/24/2020 Allergic rhinitis 12/20/2013 Chronic sinusitis 12/21/2010 BRACH PLEXUS INJ- 2002 Estimated Date of Delivery Comme nts Yes 10/07/2024 Based on last me nstrual period of 01/01/2024 documented as of this encounter (statuses as of 08/18/2024) Resolved Problems Problem Noted Date Diagnosed Date Resolved Date GBS (group B Streptococcus c arrier), +RV culture, currently 11/18/2022 01/27/2023 Antepartum anemia complicating 09/17/2022 01/27/2023 Overview (09/17/2022): hgb 11.1 at 28 weeks, increase iron to BID Normal 05/02/2022 01/27/2023 Antepartum anemia complicating 10/22/2021 05/30/2022 Overview (10/22/2021): Began iron, vitamin c, colace per smart set Recheck cbc ~11/19 Class 1 obesity 10/16/2021 01/27/2023 Overview (05/02/2022): Early glucola Acute sinusitis 11/21/2015 06/24/2018 Growing pains 11/21/2015 06/24/2018 Recurrent sinus infections 12/20/2013 0 06/24/2018 ETD (eustachian tube dysfunction) 12/20/2013 06/24/2018 Cough 12/21/2010 06/24/2018 Dysfunction of eustachian tube 12/21/2010 06/24/2018 Fever 12/21/2010 06/24/2018 Chronic rhinitis 12/21/2010 12/20/2013 Acute serous otitis media 11/05/2009 ADVANCE DIRECTIVE INFORMATION 05/06/2006 06/24/2018 Overview (05/06/2006): Not applicable (under age of 18) Otalgia 05/06/2006 06/24/2018 AC SUPP OTITIS MEDIA, RIGHT 2002 06/24/2018 ACUTE URI NOS 2002 11/17/2008 Overview (11/17/2008): Resolved per Benign Acute Dxs Protocol #3 documented as of this encounter (statuses as of 08/18/2024) Immunizations Name Administration Dates Next Due DTaP Dipth/Tet/Acell Pertussis (Infanrix), Peds 11/17/2007 HPV Vaccine, 9-Valent 12/03/2017,06/03/2017 IPV - Polio Virus Vaccine (Inact) 11/17/2007 MMR-ALBERT - Measles/Mumps/Rubella/Varicella Vaccin e 11/17/2007 Meningococcal Conjugate Vaccine (Menactra/Menveo ) 05/04/2014 Meningococcal MCV4O Conjugate Vaccine (Menveo) 0 11/17/2019 PPD 08/19/2023,05/05/2021 Seasonal Influenza Vac., MDV, IM, 0.5 mL (Fluzon e) 07/16/2014 07/16/2015 Seasonal Influenza, PF, 6 M & above, IM , (FluLaval or Fluzone) 07/22/2018 TDAP (age 10 and older)(Boostrix) 09/16/2022,02/2014 documented as of this encounter Social History Tobacco Use Types Packs/Day Years Used Date Smoking Tobacco: Never Smokeless Tobacco: Never Comments:no passive smoke Alcohol Use Standard Drinks/Week Comments No 0 (1 standard drink = 0.6 oz pur e alcohol) PHQ-2 Answer Date Recorded PHQ Adult Total Score 1 11/30/2020 Hunger Vital Sign Answer Date Recorded Within the past 12 months, y ou worried that your food would run out before you got the money to buy more. Sometimes true Within the past 12 months, t he food you bought just didn't last and you didn't have money to get more. Never true [place] Depression Scale Answer Date Recorded [place] Depression Scale Total 3 03/25/2024 The thought of harming myself has occurred to me . Never 03/25/2024 Childcare Answer Date Recorded Do you feel overwhelmed with taking care of a child, family member or friend? Yes 02/26/2024 Does your family need help f inding childcare? (Household - for ages 0-17 years) Not on file 02/26/2024 Clothing Answer Date Recorded Have you been unable to get clothing when it was really needed? No 02/26/2024 Is your family able to get c lothes or diapers when needed? (Household - for ages 0-17 years) Not on file 02/26/2024 Personal Safety Answer Date Recorded Do you feel unsafe or have concerns for your saf ety? No 02/26/2024 Do you have concerns for you r family's safety? (Household - for ages 0-17 years) Not on file 02/26/2024 Utilities Answer Date Recorded Do you have trouble paying y our heating, water, or electric bill? No 02/26/2024 Is your family able to pay t he heat, water, or electric bill? (Household - for ages 0-17 years) Not on file 02/26/2024 Does your family have access to good internet? (Household - for ages 0-17 years) Not on file 02/26/2024 Employment Status Answer Date Recorded Are you unemployed or without regular income? No 02/26/2024 Does the household have a re gular source of income? (Household - for ages 0-17 years) Not on file 02/26/2024 Social Connections Answer Date Recorded How often do you feel lonely or isolated from th ose around you? Rarely 02/26/2024 Financial Resource Strain Answer Date R ecorded Do you have any trouble payi ng for your medications, or do you think you might in the future? No 02/26/2024 Does your family have troubl e paying for medicine? (Household - for ages 0-17 years) Not on file 02/26/2024 Transportation Needs Answer Date Record ed READ ONLY Do you have troubl e getting a ride to medical visits or work? Never True 02/26/2024 Does your family have a hard time getting a ride to doctors visits? (Household - for ages 0-17 years) Not on file 02/26/2024 Has lack of transportation k ept you from medical appointments, meetings, work, or from getting things needed for daily living? Check all that apply. (Adult - for ages 18 years and over) Not on file 02/26/2024 Do you (or your family) have trouble finding or paying for a ride (transportation)? (Household - for ages 0-17 years) Not on file 02/26/2024 Housing Stability Answer Date Recorded Do you currently live in a s helter or have no steady place to sleep at night? No 02/26/2024 READ ONLY Do you think you a re at risk of becoming homeless? No 02/26/2024 Does your family worry about paying for your home or becoming homeless? (Household - for ages 0-17 years) Not on file 0 02/26/2024 Are you homeless or worried that you might be in the future? (Adult - for ages 18 years and over) Not on file Are you (or your family) michael eless or worried that you might be in the future? (Household - for ages 0-17 years) Not on file Food Insecurity Answer Date Recorded Do you need food for this week? No 02/26/2024 Are you able to get enough f ood for your family? (Household - for ages 0-17 years) Not on file 02/26/2024 Does your family need food t his week? (Household - for ages 0-17 years) Not on file 02/26/2024 Do you always have enough fo od for your family? 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 Baby is active. Denies contractions, bleeding, LOF. Declines RSV vaccine. Discussed contraceptive options, undecided. CLAIRE Gregg * Carleen Pike CMA - 08/18/2024 8:15 AM EST 32w6d Denies any concerns documented in this encounter Plan of Treatment Upcoming Encounters Date Type Department Care Team (Late st Contact Info) Description 09/10/2024 8:30 AM EST Office Visit [facility]cology[facility] [address] [facility] [place] [address] Jordyn Corbett CRNP [address] [place] [address] 09/17/2024 8:30 AM EST [facility] [address] [place] [address] Shoshana Menjivar CRNP [address] [place] [address] 09/24/2024 8:30 AM EST Office Visit Gynecology/Obstetrics [facility] [address] [place] [address] Shoshana Menjivar CRNP [address] [place] [address] Health Maintenance Due Date Last Done Comments Depression Screening 11/30/2021 11/30/2020 COVID-19 Vaccine ( season) 2024 Influenza Vaccine (FLU shot) (#1) 2024 07/22/2018, 07/16/2014 Gonorrhea / Chlamydia Screen 03/25/2025, 05/02/2022, 10/16/2021 Pap Smear 03/25/2027 03/25/2024 DTap/Tdap Vaccines (8 - Td or Tdap) 09/16/2032 09/16/2022, 05/04/2014, 11/17/2007, Additional history exists Hepatitis B Vaccine Completed 03/30/2003, 2002, 2002 HPV (Gardasil) Vaccine Completed 12/03/2017, 2016 MENINGOCOCCAL (MENACTRA/MENVEO) Completed 11/17/2019, 05/04/2014 Pneumococcal Vaccine: Pediatrics (0 to 5 Years) and At-Risk Patients (6 to 64 Years) Aged Out No longer eligible based on patient's age to complete this topic documented as of this encounter Medical Devices Not on filedocumented as of this encounter Visit Diagnoses Diagnosis Supervision of other normal , antepartum- Primary Obesity in , antepartum Obesity complicating , childbirth, or the puerperium, antepartum condition or complication documented in this encounter Advance Directives * Full Code (Latest Code Status on File) Date Activated Date Inactivated Comments 01/22/2010 8:31 AM 01/23/2010 2:09 PM This order r eflects the patients wishes and were consensually agreed upon. Care Teams Patient Sitter Relationship Specialty Start Date End Date Rusty Horton MD [address] [facility] [place] [address] PCP - General 02 documented as of this encounter
--- OUTSIDE RECORDS SUMMARY | 2024-10-08 23:38 | External Medical Summary | Summary of Care ---
Author Name Unknown Organization [facility] Address [address] [facility] [place] [address] Phone [phone] Care Team Providers Care Ring Packer Name Role Phone Rusty Horton MD Primary Care Provider +1- [phone] Reason for Visit * Reason Onset Date Comments Appointment 09/30/2024 Encounter Details Date Type Department Care Team (Late st Contact Info) Description 09/30/2024 Telephone Gynecology/Obstetrics [facility] [address] [place] [address] Rafael Proctor MD [address] [place] [address] Appointment Allergies Active Allergy Reactions Criticality Noted Date Comments Amoxicillin-Pot Clavulanate Hives 08/05/20 21 Dust Other (Please comment) High 07/11/2014 documented as of this encounter (statuses as of 09/30/2024) Medications EpiPen 2-Yusuf 0.3 MG/0.3ML Injection Solution [...] as of this encounter (statuses as of 09/30/2024) Active Problems Problem Noted Date Diagnosed Date Carrier of group B Streptococcus 09/13/2024 Obesity in , antepartum 05/03/2024 Overview (05/03/2024): [...] as of this encounter (statuses as of 09/30/2024) Resolved Problems Problem Noted Date Diagnosed Date [...] as of this encounter (statuses as of 09/30/2024) Immunizations Name Administration Dates Next Due DTaP [...] have money to get more. Never true [place] Depression Scale Answer Date Recorded [place] Depression Scale Total 3 03/25/2024 The thought [...] on file documented as of this encounter Miscellaneous Notes * Telephone Encounter - Nereida Watts OSA - 09/30/2024 1:34 PM EST Per patient - return the beginning of next week , shes being induced next Friday and there is nothing i can access for that time frame. Please contact patient at number on file or through [employer] Thank you documented in this encounter Plan of Treatment Health Maintenance Due Date Last Done Comments [...] 5 Years) and At-Risk Patients (6 to 18 Years and 19+ Years) Aged Out No longer eligib le based on patient's age to complete this topic documented as of this encounter Medical Devices Not on filedocumented as of this encounter Advance Directives * Full Code (Latest Code Status on File) Date Activated Date Inactivated Comments 01/22/2010 8:31 AM 01/23/2010 2:09 PM This order r eflects the patients wishes and were consensually agreed upon. Care Teams Ring Packer Relationship Specialty Start Date End Date Rusty Horton MD PCP - General 02 documented as of this encounter
--- OUTSIDE RECORDS SUMMARY | 2024-10-08 23:38 | External Medical Summary ---
Author Name Unknown Address Unknown Organization K01:[facility] [place] [facility] [address] [place] [address] Laboratory Report Ordering Provider Test Date Status SHEMAR ELLISON 09/10/2024 08:56:27 Final Observation Date Value Abnormality Reference (Units ) Status Streptococcus agalactiae DNA [Presence] in Specimen by STACY with probe detection 09/10/2024 08:56:27 Positive Abnormal Negative Final Group B Streptococcus detect ed by culture-enhanced PCR (amplified probe). GBS GBSCT - [facility] 09/10/2024 08:56:27 16.6 Final GBS SPCCT - [facility] 09/10/2024 08:56:27 0.0 Final Performing Location [facility] [place] [address] [place] [address]
--- OUTSIDE RECORDS SUMMARY | 2024-10-08 23:38 | External Medical Summary | Summary of Care ---
Author Name Unknown Organization [facility] Address [address] [facility] [place] [address] Phone [phone] Care Team Providers Care Electric Fork Operator Name Role Phone Rusty Horton MD Primary Care Provider +1- [phone] Reason for Visit * Reason Comments Return Visit Encounter Details Date Type Department Care Team (Latest Contact Info) Description 10/06/2024 1:15 PM EST Office Visit Gynecology/Obstetric s [facility] [address] [place] [address] Nga Mahoney PA-C [address] [place] [address] Supervision of other normal , antepartum*; Obesity in , antepartum; Carrier of group B Streptococcus Allergies Active Allergy Reactions Criticality Noted Date Comments Amoxicillin-Pot Clavulanate Hives 08/05/20 21 Dust Other (Please comment) High 07/11/2014 documented as of this encounter (statuses as of 10/06/2024) Medications EpiPen 2-Yusuf 0.3 MG/0.3ML Injection Solution [...] as of this encounter (statuses as of 10/06/2024) Active Problems Problem Noted Date Diagnosed Date [...] as of this encounter (statuses as of 10/06/2024) Resolved Problems Problem Noted Date Diagnosed Date [...] as of this encounter (statuses as of 10/06/2024) Immunizations Name Administration Dates Next Due DTaP [...] you got the money to buy more. Never true 10/06/19 25 Within the past 12 months, t he food you bought just didn't last and you didn't have money to get more. Never true 10/06/2024 [place] Depression Scale Answer Date Recorded [place] Depression Scale Total 6 10/06/2024 The thought of harming myself has occurred to me . Never 10/06/2024 Childcare Answer Date Recorded Do you feel overwhelmed with taking care of a child, family member or friend? Yes 10/06/2024 Does your family need help f inding childcare? (Household - for ages 0-17 years) Not on file 10/06/2024 Clothing Answer Date Recorded Have you been unable to get clothing when it was really needed? No 10/06/2024 Is your family able to get c lothes or diapers when needed? (Household - for ages 0-17 years) Not on file 10/06/2024 Personal Safety Answer Date Recorded Do you feel unsafe or have concerns for your saf ety? No 10/06/2024 Do you have concerns for you r family's safety? (Household - for ages 0-17 years) Not on file 10/06/2024 Utilities Answer Date Recorded Do you have trouble paying y our heating, water, or electric bill? No 10/06/2024 Is your family able to pay t he heat, water, or electric bill? (Household - for ages 0-17 years) Not on file 10/06/2024 Does your family have access to good internet? (Household - for ages 0-17 years) Not on file 10/06/2024 Employment Status Answer Date Recorded Are you unemployed or without regular income? No 10/06/2024 Does the household have a re gular source of income? (Household - for ages 0-17 years) Not on file 10/06/2024 Social Connections Answer Date Recorded How often do you feel lonely or isolated from th ose around you? Rarely 10/06/2024 Financial Resource Strain Answer Date R ecorded Do you have any trouble payi ng for your medications, or do you think you might in the future? No 10/06/2024 Does your family have troubl e paying for medicine? (Household - for ages 0-17 years) Not on file 10/06/2024 Transportation Needs Answer Date Record ed READ ONLY Do you have troubl e getting a ride to medical visits or work? Never True 10/06/2024 Does your family have a hard time getting a ride to doctors visits? (Household - for ages 0-17 years) Not on file 10/06/2024 Has lack of transportation k ept you from medical appointments, meetings, work, or from getting things needed for daily living? Check all that apply. No 10/06/2024 Do you (or your family) have trouble finding or paying for a ride (transportation)? (Household - for ages 0-17 years) Not on file 10/06/2024 Housing Stability Answer Date Recorded Do you currently live in a s helter or have no steady place to sleep at night? No 10/06/2024 READ ONLY Do you think you a re at risk of becoming homeless? No 10/06/2024 Does your family worry about paying for your home or becoming homeless? (Household - for ages 0-17 years) Not on file 0 10/06/2024 Are you homeless or worried that you might be in the future? No 10/06/2024 Are you (or your family) michael eless or worried that you might be in the future? (Household - for ages 0-17 years) Not on file Food Insecurity Answer Date Recorded Do you need food for this week? No 10/06/2024 Are you able to get enough f ood for your family? (Household - for ages 0-17 years) Not on file 10/06/2024 Does your family need food t his week? (Household - for ages 0-17 years) Not on file 10/06/2024 Do you always have enough fo od for your family? (Household - for ages 0-17 years) Not on file 10/06/2024 Estimated Date of Delivery Comme nts Yes [...] Sign Reading Time Taken Comments Blood Pressure 102/64 10/06/2024 1:07 PM EST Pulse - - Temperature - - Respiratory Rate - - Oxygen Saturation - - Inhaled Oxygen Concentration - - Weight 105.2 kg (232 lb) 10/06/2024 1:07 PM EST Height 167.6 cm (5' 6") 10/06/2024 1:07 PM EST Body Mass Index 37.45 10/06/2024 1:07 PM EST documented in this encounter Progress Notes * Nga Mahoney PA-C - 10/06/2024 1:23 PM EST 39w6d Denies regular contractions, LOF, VB. Baby is active. She has not concerns/complaints. Declines cervical check. IOL scheduled 10/08/2024. Has instructions. Asking why she tends to delivery later as first went past due date. Discussed with her not uncommon. RTC for appointments Nga Mahoney PA-C documented in this encounter Nursing Notes * Danna Anderson LPN - 10/06/2024 1:10 PM EST 39w6d Denies concerns IOL 10/08/24. documented in this encounter Plan of Treatment [...] or the puerperium, antepartum condition or complication Carrier of group B Streptococcus Carrier or suspected carrier of Group B streptococcus documented in this encounter Advance Directives * Full Code (Latest Code Status on File) Date Activated Date Inactivated Comments 01/22/2010 8:31 AM 01/23/2010 2:09 PM This order r eflects the patients wishes and were consensually agreed upon. Care Teams Electric Fork Operator Relationship Specialty Start Date End Date Rusty Horton MD PCP - General 02 documented as of this encounter
--- OUTSIDE RECORDS SUMMARY | 2024-10-08 23:38 | External Medical Summary | Summary of Care ---
Author Name Unknown Organization [facility] Address [address] [facility] [place] [address] Phone [phone] Care Team Providers Care Mold Designer Name Role Phone Rusty Horton MD Primary Care Provider +1- [phone] Reason for Visit * Reason Comments Return Visit Encounter Details Date Type Department Care Team (Late st Contact Info) Description 09/17/2024 8:30 AM EST Office Visit Gynecology/Obstetri [facility] [address] [place] [address] Shoshana Menjivar CRNP [address] [place] [address] Supervision of other normal , antepartum*; Obesity in , antepartum; Carrier of group B Streptococcus Allergies Active Allergy Reactions Criticality Noted Date Comments Amoxicillin-Pot Clavulanate Hives 08/05/20 21 Dust Other (Please comment) High 07/11/2014 documented as of this encounter (statuses as of 09/17/2024) Medications EpiPen 2-Yusuf 0.3 MG/0.3ML Injection Solution [...] as of this encounter (statuses as of 09/17/2024) Active Problems Problem Noted Date Diagnosed Date [...] as of this encounter (statuses as of 09/17/2024) Resolved Problems Problem Noted Date Diagnosed Date [...] as of this encounter (statuses as of 09/17/2024) Immunizations Name Administration Dates Next Due DTaP [...] have money to get more. Never true [place] Depression Scale Answer Date Recorded [place] Depression Scale Total 3 03/25/2024 The thought [...] Sign Reading Time Taken Comments Blood Pressure 108/64 09/17/2024 8:32 AM EST Pulse - - Temperature - - Respiratory Rate - - Oxygen Saturation - - Inhaled Oxygen Concentration - - Weight 103 kg (227 lb) 09/17/2024 8:32 AM EST Height - - Body Mass Index 36.64 07/02/2024 8:25 AM EDT documented in this encounter Progress Notes * Shohsana Menjivar CRNP - 09/17/2024 8:35 AM EST 37w1d Doing well. Baby less active than in the past, but still getting >10 movements in 2 hrs. No regular ctx, leaking, bleeding. Reviewed [facility] and labor signs, when to call. 1 week return CLAIRE Walker * Carleen Pike CMA - 09/17/2024 8:32 AM EST 37w1d Denies any concerns documented in this encounter Plan of Treatment Upcoming Encounters Date Type Department Care Team (Late st Contact Info) Description 09/24/2024 8:30 AM EST Office Visit Gynecology/Obstetrics [facility] [address] [place] [address] Shoshana Menjivar CRNP [address] [place] [address] Health Maintenance Due Date Last Done Comments [...] and were consensually agreed upon. Care Teams Mold Designer Relationship Specialty Start Date End Date Rusty Horton MD PCP - General 02 documented as of this encounter
--- OUTSIDE RECORDS SUMMARY | 2024-10-08 23:38 | External Medical Summary | Summary of Care ---
Author Name Unknown Organization [facility] Address [address] [facility] [place] [address] Phone [phone] Care Team Providers Care Electrical Timing Device Calibrator Name Role Phone Rusty Horton MD Primary Care Provider +1- [phone] Reason for Visit * Reason Comments Return Visit Encounter Details Date Type Department Care Team (Late st Contact Info) Description 09/10/2024 8:30 AM EST Office Visit Gynecology/Obstetric s [facility] [address] [place] [address] Jordyn Corbett CRNP [address] [place] [address] Supervision of other normal , antepartum*; Obesity in , antepartum Allergies Active Allergy Reactions Criticality Noted Date Comments Amoxicillin-Pot Clavulanate Hives 08/05/20 21 Dust Other (Please comment) High 07/11/2014 documented as of this encounter (statuses as of 09/10/2024) Medications EpiPen 2-Yusuf 0.3 MG/0.3ML Injection Solution [...] as of this encounter (statuses as of 09/10/2024) Active Problems Problem Noted Date Diagnosed Date [...] as of this encounter (statuses as of 09/10/2024) Resolved Problems Problem Noted Date Diagnosed Date [...] as of this encounter (statuses as of 09/10/2024) Immunizations Name Administration Dates Next Due DTaP Dipth/Tet/Acell Pertussis (Infanrix), Peds 11/17/2007,10/28/2003,01/14/2003,10/01,2002 HIB PRP-T, 4 Dose, PF, IM (H iberix, ActHib) 10/28/2003,01/14/2003,2002,07/30 HPV Vaccine, 9-Valent 12/03/2017,06/03/2017 Hepatitis B, 0-19 yrs 03/30/2003,2002,05/30 IPV - Polio Virus Vaccine (Inact) 2007,01/14/2003,2002,07/30 MMR - Measles/Mumps/Rubella Vaccine 10/28/2003 MMR-ALBERT - Measles/Mumps/Rubella/Varicella Vaccine 11/17/2007 Meningococcal Conjugate Vacc ine (Menactra/Menveo) 05/04/2014 Meningococcal MCV4O Conjugat e Vaccine (Menveo) 11/17/2019 PPD 08/19/2023,05/05/2021 Pneumococcal Conjugate Vacci ne, 7 Valent 01/14/2003,2002,2002 Seasonal Influenza Vac., MDV , IM, 0.5 mL (Fluzone) 07/16/2014 07/16/2015 Seasonal Influenza, PF, 6 M & above, IM , (FluLaval or Fluzone) 07/22/2018 TDAP (age 10 and older)(Boostrix) 09/16/2022,02/2014 Varicella Vaccine (Chicken Pox) 07/01/2003 documented as of this encounter Social History [...] have money to get more. Never true [place] Depression Scale Answer Date Recorded [place] Depression Scale Total 3 03/25/2024 The thought [...] Sign Reading Time Taken Comments Blood Pressure 110/62 09/10/2024 8:29 AM EST Pulse - - Temperature - - Respiratory Rate - - Oxygen Saturation - - Inhaled Oxygen Concentration - - Weight 102 kg (224 lb 12.8 oz) 09/10/2024 8:29 A M EST Height - - Body Mass Index 36.28 07/02/2024 8:25 AM EDT documented in this encounter Progress Notes * Jordyn Corbett CRNP - 09/10/2024 8:45 AM EST 36w1d Had 3 painful ?contractions 2 Saturdays ago. She also thinks she lost her mucus plug. Reviewed labor precautions. Baby is active. Denies bleeding or LOF. GBS today. Requesting cervical check. Research Anthropologist Documentation Provider requested integration analyst. Name of integration analyst: CLAIRE Hook * Carleen Pike CMA - 09/10/2024 8:29 AM EST 36w1d Possible loss of mucus plug. GBS swab today. Requesting cervical check today. documented in this encounter Plan of Treatment Upcoming Encounters Date Type Department Care Team (Late st Contact Info) Description 09/17/2024 8:30 AM EST Office Visit Gynecology/Obstetrics [facility] [address] [place] [address] Shoshana Menjivar CRNP [address] [place] [address] 09/24/2024 8:30 AM EST Office Visit Gynecology/Obstetrics [facility] [address] [place] [address] Shoshana Menjivar CRNP [address] [place] [address] Pending Results Name Type Priority Associated Diagnoses Date /Time GROUP B STREP CULTURE/PCR Lab Routine Supervision of other normal , antepartum 09/10/2024 8:56 AM EST Scheduled Orders Name Type Priority Associated Diagnoses Orde r Schedule GROUP B STREP CULTURE/PCR Lab Routine Supervision of other normal , antepartum Expected: 09/10/2024, Expires: 09/10/2025 Health Maintenance Due Date Last Done Comments [...] and were consensually agreed upon. Care Teams Electrical Timing Device Calibrator Relationship Specialty Start Date End Date Rusty Horton MD [address] [place] [address] PCP - General 02 documented as of this encounter
--- OUTSIDE RECORDS SUMMARY | 2024-10-08 23:38 | External Medical Summary | Summary of Care ---
Author Name Unknown Organization [facility] Address [address] [facility] [place] [address] Phone [phone] Care Team Providers Care Business Banking Officer Name Role Phone Rusty Horton MD Primary Care Provider +1- [phone] Reason for Visit * Reason Comments Return Visit Encounter Details Date Type Department Care Team (Late st Contact Info) Description 09/10/2024 8:30 AM EST Office Visit Gynecology/Obstetric s [facility] [address] [place] [address] Jordyn Corbett CRNP [address] [place] [address] Supervision of other normal , antepartum*; Obesity [...] have money to get more. Never true [place] Depression Scale Answer Date Recorded [place] Depression Scale Total 3 03/25/2024 The thought [...] or LOF. GBS today. Requesting cervical check. Sql Developer Documentation Provider requested forest nursery supervisor. Name of forest nursery supervisor: CLAIRE Hook * Carleen Pike CMA - 09/10/2024 8:29 AM EST 36w1d Possible loss of mucus plug. GBS swab today. Requesting cervical check today. documented in this encounter Plan of Treatment Upcoming Encounters Date Type Department Care Team (Late st Contact Info) Description 09/17/2024 8:30 AM EST Office Visit Gynecology/Obstetrics [facility] [address] [place] [address] Shoshana Menjivar CRNP [address] [place] [address] 09/24/2024 8:30 AM EST Office Visit Gynecology/Obstetrics [facility] [address] [place] [address] Shoshana Menjivar CRNP [address] [place] [address] Pending Results Name Type Priority Associated Diagnoses [...] and were consensually agreed upon. Care Teams Business Banking Officer Relationship Specialty Start Date End Date Rusty Horton MD [address] [place] [address] PCP - General 02 documented as of this encounter
--- OUTSIDE RECORDS SUMMARY | 2024-10-08 23:38 | External Medical Summary | Summary of Care ---
Author Name Unknown Organization [facility] Address [address] [facility] [place] [address] Phone [phone] Care Team Providers Care Kapok And Cotton Machine Operator Name Role Phone Rusty Horton MD Primary Care Provider +1- [phone] Reason for Visit * Reason Comments Return Visit Encounter Details Date Type Department Care Team (Latest Contact Info) Description 09/30/2024 1:15 PM EST Office Visit Gynecology/Obstetric s [facility] [address] [place] [address] Rafael Proctor MD [address] [place] [address] Supervision of other normal , antepartum*; Obesity [...] have money to get more. Never true [place] Depression Scale Answer Date Recorded [place] Depression Scale Total 3 03/25/2024 The thought [...] Reading Time Taken Comments Blood Pressure 102/58 09/30/2024 1:08 PM EST Pulse - - Temperature - - Respiratory Rate - - Oxygen Saturation - - Inhaled Oxygen Concentration - - Weight 103.4 kg (228 lb) 09/30/2024 1:08 PM EST Height 167.6 cm (5' 6") 09/30/2024 1:08 PM EST Body Mass Index 36.8 09/30/2024 1:08 PM EST documented in this encounter Progress Notes * Rafael Proctor MD - 09/30/2024 1:22 PM EST Pt doing well No complaints RTC 1 weeks Douglas fo induction on * Martha Vang LPN - 09/30/2024 1:08 PM EST 39w0d Denies any concerns documented in this encounter Plan of Treatment Upcoming Encounters Date Type Department Care Team (Late st Contact Info) Description 10/06/2024 1:15 PM EST Office Visit Gynecology/Obstetrics [facility] [address] [place] [address] Nga Mahoney PA-C [address] [place] [address] Health Maintenance Due Date Last Done Comments [...] and were consensually agreed upon. Care Teams Kapok And Cotton Machine Operator Relationship Specialty Start Date End Date Rusty Horton MD PCP - General 02 documented as of this encounter
--- OUTSIDE RECORDS SUMMARY | 2024-10-08 23:38 | External Medical Summary | Summary of Care ---
Author Name Unknown Organization [facility] Address [address] [facility] [place] [address] Phone [phone] Care Team Providers Care Adult Basic Education Instructor Name Role Phone Rusty Horton MD Primary Care Provider +1- [phone] Reason for Visit * Reason Comments Return Visit Encounter Details Date Type Department Care Team (Late st Contact Info) Description 07/30/2024 8:30 AM EDT Office Visit Gynecology/Obstetric s [facility] [address] [place] [address] Jordyn Corbett CRNP [address] [place] [address] Supervision of other normal , antepartum*; Obesity in , antepartum Allergies Active Allergy Reactions Criticality Noted Date Comments Amoxicillin-Pot Clavulanate Hives 08/05/20 21 Dust Other (Please comment) High 07/11/2014 documented as of this encounter (statuses as of 07/30/2024) Medications Medication Sig Dispensed Refills Start Date End Date Status EpiPen 2-Yusuf 0.3 MG/0.3ML Injection Solution Auto-injectorIndicati ons:Allergic reaction, initial encounter For a severe reaction: Place orange end against the outer thigh, press firmly, hold in place for 10 seconds and go to the Emergency room. 1 Each 04/05/2022 Active Albuterol Sulfate HFA 108 (90 Base) MCG/ACT Inhalation Aerosol SolutionIndications:U pper respiratory tract infection, unspecified type,Wheezing Inhale 2 Puffs by mouth every 4 hours as needed for Congestion, Cough or Wheezing. 18 g 09/06/2022 Active Fluticasone Propionate 50 MCG/ACT Nasal Suspension (Flonase)Indications: Other allergic rhinitis 2 squirts each nostril daily at bedtime 16 g 01/15/2023 Active 28-0.8 MG Oral Tablet Take by mouth. Active documented as of this encounter (statuses as of 07/30/2024) Active Problems Problem Noted Date Diagnosed Date Obesity in , antepartum 05/03/2024 Overview: Class 1 The patient's pre-gravid BMI is 30.20. Supervision of other normal , antepartu m 03/25/2024 Food insecurity 03/08/2024 Overview: Per [facility] Protocol Anxiety 07/24/2020 Allergic rhinitis 12/20/2013 Chronic sinusitis 12/21/2010 BRACH PLEXUS INJ- 2002 Estimated Date of Delivery Comme nts Yes 10/07/2024 Based on last me nstrual period of 01/01/2024 documented as of this encounter (statuses as of 07/30/2024) Resolved Problems Problem Noted Date Diagnosed Date Resolved Date GBS (group B Streptococcus c arrier), +RV culture, currently 11/18/2022 01/27/2023 Antepartum anemia complicating 09/17/2022 01/27/2023 Overview: hgb 11.1 at 28 weeks, increase iron to BID Normal 05/02/2022 01/27/2023 Antepartum anemia complicating 10/22/2021 05/30/2022 Overview: Began iron, vitamin c, colace per smart set Recheck cbc ~11/19 Class 1 obesity 10/16/2021 01/27/2023 Overview: Early glucola Acute sinusitis 11/21/2015 06/24/2018 Growing pains 11/21/2015 06/24/2018 Recurrent sinus infections 12/20/2013 0 06/24/2018 ETD (eustachian tube dysfunction) 12/20/2013 06/24/2018 Cough 12/21/2010 06/24/2018 Dysfunction of eustachian tube 12/21/2010 06/24/2018 Fever 12/21/2010 06/24/2018 Chronic rhinitis 12/21/2010 12/20/2013 Acute serous otitis media 11/05/2009 ADVANCE DIRECTIVE INFORMATION 05/06/2006 06/24/2018 Overview: Not applicable (under age of 18) Otalgia 05/06/2006 06/24/2018 AC SUPP OTITIS MEDIA, RIGHT 2002 06/24/2018 ACUTE URI NOS 2002 11/17/2008 Overview: Resolved per Benign Acute Dxs Protocol #3 documented as of this encounter (statuses as of 07/30/2024) Immunizations Name Administration Dates Next Due DTaP [...] the money to buy more. Sometimes true 05 / Within the past 12 months, t he food you bought just didn't last and you didn't have money to get more. Never true [place] Depression Scale Answer Date Recorded [place] Depression Scale Total 3 03/25/2024 The thought [...] Assigned at Female 05/02/2022 9:09 AM EDT Gender Identity Female 05/02/2022 9:09 AM EDT Sexual Orientation Straight 05/02/2022 9: 09 AM EDT Job Start Date Occupation Industry Not on file Not on file Not on file documented as of this encounter Last Filed Vital Signs Vital Sign Reading Time Taken Comments Blood Pressure 100/60 07/30/2024 8:37 AM EDT Pulse - - Temperature - - Respiratory Rate - - Oxygen Saturation - - Inhaled Oxygen Concentration - - Weight 96.2 kg (212 lb) 07/30/2024 8:37 AM EDT Height - - Body Mass Index 34.22 07/02/2024 8:25 AM EDT documented in this encounter Progress Notes * Jordyn Corbett CRNP - 07/30/2024 8:46 AM EDT 30w1d Having some cramping- 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 Advised this is likely contributing. Encouraged adequate hydration as well. Baby is moving well. No bleeding or LOF. Declines TDAP. CLAIRE Gregg * Antonette Pressley LPN - 07/30/2024 8:34 AM EDT 30w1d Denies vaginal bleeding/rom + movement Declines tdap today Round ligament pain Clarence calvin documented in this encounter Plan of Treatment Upcoming Encounters Date Type Department Care Team (Late st Contact Info) Description 08/13/2024 8:30 AM EST Office Visit Gynecology/Obstetrics [facility] [address] [place] [address] Jordyn Corbett CRNP [address] [place] [address] 09/10/2024 8:30 AM EST Office Visit Gynecology/Obstetrics [facility] [address] [place] [address] Jordyn Corbett CRNP [address] [place] [address] 10/01/2024 8:30 AM EST Office Visit Gynecology/Obstetrics [facility] [address] [place] [address] Jordyn Corbett CRNP [address] [place] [address] Health Maintenance Due Date Last Done Comments [...] and were consensually agreed upon. Care Teams Adult Basic Education Instructor Relationship Specialty Start Date End Date [facility]y Horton [facility] [address] [facility] [address] PCP - General 02 documented as of this encounter
--- OUTSIDE RECORDS SUMMARY | 2024-10-08 23:38 | External Medical Summary | Summary of Care ---
Author Name Unknown Organization [facility] Address [address] [facility] [place] [address] Phone [phone] Care Team Providers Care Restaurant Line Cook Name Role Phone Rusty Horton MD Primary Care Provider +1- [phone] Reason for Visit * Reason Onset Date Comments Appointment 09/30/2024 Encounter Details Date Type Department Care Team (Late st Contact Info) Description 09/30/2024 Telephone Gynecology/Obstetrics [facility] [address] [place] [address] Rafael Proctor MD [address] [place] [address] Appointment Allergies Active Allergy Reactions Criticality Noted [...] have money to get more. Never true [place] Depression Scale Answer Date Recorded [place] Depression Scale Total 3 03/25/2024 The thought [...] patient at number on file or through [employer]. Thank you documented in this encounter Plan [...] and were consensually agreed upon. Care Teams Restaurant Line Cook Relationship Specialty Start Date End Date Rusty Horton MD PCP - General 02 documented as of this encounter
--- OUTSIDE RECORDS SUMMARY | 2024-10-08 23:38 | External Medical Summary ---
Author Name Unknown Address Unknown Organization K01:[facility] [place], [place] - [address] [place] [address] Laboratory Report Ordering Provider Test Date Status PAULINE ELLISONTEO 09/10/2024 08:56:27 Final Observation Date Value Abnormality Reference (Units) Status Bacteria identified in Specimen by Culture 09/10/2024 08:56:27 [id number]^BETA STREPTOCOCCUS GROUP B Abnormal Final Beta Streptococcus group B Performing Location [facility] [place], [place] - [address] [place] [address] Ordering Provider Test Date Status SHEMAR ELLISON 09/10/2024 08:56:27 Final Observation Date Value Abnormality Reference (Units ) Status Clindamycin 09/10/2024 08:56:27 <=0.25 Susceptible Final Penicillin susceptibility 09/10/2024 08:56:27 <=0.06 Susceptible Final Vancomycinsusceptibility 09/10/2024 08:56:27 0.5 Susceptible Final Test: Group B Strep Suscepti bility
Specimen Source: Vaginal Rectal
Specimen Type: Swab
Specimen Date: 09/10/2024 0856
Result Date: 09/14/2024 1436
Result Status: Final result
Abnormal: Yes
Resulting Lab: [facility] [place] [place]
[address]
[place] [address]

CULTURE

Beta Streptococcus group B (Abnormal)

SUSCEPTIBILITY

Beta Streptococcus
group B
METHOD MICROBROTH
DILUTIONS

CLINDAMYCIN <=0.25 Susceptible
PENICILLIN G <=0.06 Susceptible
VANCOMYCIN 0.5 Susceptible

null Performing Location [facility] [place], [place] - [address] [facility] [address]
--- OUTSIDE RECORDS SUMMARY | 2024-10-08 23:38 | External Medical Summary | Summary of Care ---
Author Name Unknown Organization [facility] Address [address] [facility] [place] [address] Phone [phone] Care Team Providers Care Manager Pharmacy Name Role Phone Rusty Horton MD Primary Care Provider +1- [phone] Reason for Visit * Reason Onset Date Comments Appointment 09/30/2024 Encounter Details Date Type Department Care Team (Late st Contact Info) Description 09/30/2024 Telephone Gynecology/Obstetrics [facility] [address] [place] [address] Rafael Proctor MD [address] [place] [address] Appointment Allergies Active Allergy Reactions Criticality Noted [...] have money to get more. Never true [place] Depression Scale Answer Date Recorded [place] Depression Scale Total 3 03/25/2024 The thought [...] patient at number on file or through [employer] [place]. Thank you documented in this encounter Plan [...] and were consensually agreed upon. Care Teams Manager Pharmacy Relationship Specialty Start Date End Date Rusty Horton MD PCP - General 02 documented as of this encounter
--- OUTSIDE RECORDS SUMMARY | 2024-10-08 23:38 | External Medical Summary | Summary of Care ---
Author Name Unknown Organization [facility] Address [address] [facility] [place] [address] Phone [phone] Care Team Providers Care Dispensary Attendant Name Role Phone Rusty Horton MD Primary Care Provider +1- [phone] Reason for Visit * Reason Comments Return Visit Encounter Details Date Type Department Care Team (Late st Contact Info) Description 09/24/2024 8:30 AM EST Office Visit Gynecology/Obstetri [facility] [address] [place] [address] Shoshana Menjivar CRNP [address] [place] [address] Supervision of other normal , antepartum*; Obesity in , antepartum; Carrier of group B Streptococcus Allergies Active Allergy Reactions Criticality Noted Date Comments Amoxicillin-Pot Clavulanate Hives 08/05/20 21 Dust Other (Please comment) High 07/11/2014 documented as of this encounter (statuses as of 09/24/2024) Medications EpiPen 2-Yusuf 0.3 MG/0.3ML Injection Solution [...] as of this encounter (statuses as of 09/24/2024) Active Problems Problem Noted Date Diagnosed Date [...] as of this encounter (statuses as of 09/24/2024) Resolved Problems Problem Noted Date Diagnosed Date [...] as of this encounter (statuses as of 09/24/2024) Immunizations Name Administration Dates Next Due DTaP Dipth/Tet/Acell Pertussis (Infanrix), Peds 11/17/2007 HPV Vaccine, 9-Valent 12/03/2017,06/03/2017 IPV - Polio Virus Vaccine (Inact) 11/17/2007 MMR-ALBRET - Measles/Mumps/Rubella/Varicella Vaccin e 11/17/2007 Meningococcal Conjugate [...] have money to get more. Never true [place] Depression Scale Answer Date Recorded [place] Depression Scale Total 3 03/25/2024 The thought [...] Sign Reading Time Taken Comments Blood Pressure 104/58 09/24/2024 8:27 AM EST Pulse - - Temperature - - Respiratory Rate - - Oxygen Saturation - - Inhaled Oxygen Concentration - - Weight 103.9 kg (229 lb) 09/24/2024 8:27 AM EST Height - - Body Mass Index 36.96 07/02/2024 8:25 AM EDT documented in this encounter Progress Notes * Shoshana Menjivar CRNP - 09/24/2024 8:35 AM EST 38w1d Doing well, no regular ctx or leaking/bleeding. Good movement. Open to IOL at 40+ weeks. EFW 6-6.5 lbs by [facility]. 1 week return. CLAIRE Walker * Carleen Pike CMA - 09/24/2024 8:27 AM EST 38w1d Denies any concerns documented in this encounter Plan of Treatment Upcoming Encounters Date Type Department Care Team (Late st Contact Info) Description 09/30/2024 1:15 PM EST [facility] [address] [place] [address] Rafael Proctor MD [address] [place] [address] Health Maintenance Due Date Last Done Comments [...] and were consensually agreed upon. Care Teams Dispensary Attendant Relationship Specialty Start Date End Date Rusty Horton MD PCP - General 02 documented as of this encounter
--- OUTSIDE RECORDS SUMMARY | 2024-10-08 23:39 | External Medical Summary | Summary of Care ---
Author Name Unknown Organization [facility] Address [address] [facility] [address] Phone [phone] Care Team Providers Care Orthopedic Shoe Fitter Name Role Phone Rusty Horton MD Primary Care Provider +1- [phone] Reason for Visit * Reason Comments Outpatient Testing Encounter Details Date Type Department Care Team (Late st Contact Info) Description 05/03/2024 9:10 AM EDT Laboratory Laboratory, [facility] [address] [facility] [place] [address] [facility] 132 [place] [address] Supervision of other normal , antepartum; Obesity in , antepartum Allergies Active Allergy Reactions Criticality Noted Date Comments Amoxicillin-Pot Clavulanate Hives 08/05/20 21 Dust Other (Please comment) High 07/11/2014 documented as of this encounter (statuses as of 05/03/2024) Medications Medication Sig Dispensed Refills Start Date [...] as of this encounter (statuses as of 05/03/2024) Active Problems Problem Noted Date Diagnosed Date [...] as of this encounter (statuses as of 05/03/2024) Resolved Problems Problem Noted Date Diagnosed Date [...] as of this encounter (statuses as of 05/03/2024) Immunizations Name Administration Dates Next Due DTaP Dipth/Tet/Acell Pertussis (Infanrix), Peds 11/17/2007 HPV Vaccine, 9-Valent 12/03/2017,06/03/2017 IPV - Polio Virus Vaccine (Inact) 11/17/2007 MMR-ALBERT - Measles/Mumps/Rubella/Varicella Vaccin e 11/17/2007 Meningococcal Conjugate Vaccine (Menactra/Menveo ) 05/04/2014 Meningococcal MCV4O Conjugate Vaccine (Menveo) 0 11/17/2019 PPD 08/19/2023,05/05/2021 Seasonal Influenza, PF, 6 M & above, IM , (FluLaval or Fluzone) 07/22/2018 Seasonal Influenza, Split, IIV3, With Preserve, Inj 07/16/2014 07/16/2015 TDAP (age 10 and older)(Boostrix) 09/16/2022,02/2014 documented [...] have money to get more. Never true [place] Depression Scale Answer Date Recorded [place] Depression Scale Total 3 03/25/2024 The thought [...] No 02/26/2024 Does the household have a [facility] source of income? (Household - for ages [...] on file documented as of this encounter Plan of Treatment Upcoming Encounters Date Type Department Care Team (Late st Contact Info) Description 06/04/2024 9:00 AM EDT Imaging Radiology [facility] [address] [place] [address] 06/04/2024 10:45 AM EDT Office Visit Gynecology/Obstetrics [facility] [address] [place] [address] Jordyn Corbett CRNP [address] [place] [address] Health Maintenance Due Date Last Done Comments Depression Screening 11/30/2021 11/30/2020 COVID-19 Vaccine ( season) 2023 Influenza Vaccine (FLU shot) (#1) 2024 07/22/2018, 07/16/2014 Yearly Wellness Visit 08/19/2024 08/19/2023 , 05/05/2021, 11/30/2020, Additional history exists Gonorrhea / Chlamydia Screen 03/25/2025, 05/02/2022, 10/16/2021 Pap Smear 03/25/2027 03/25/2024 DTaP,Tdap,and Td Vaccines (8 - Td or Tdap) 09/16/2032 [...] Diagnoses Diagnosis Supervision of other normal , antepartum Obesity in , antepartum Obesity complicating , childbirth, or the puerperium, antepartum condition or complication documented in this encounter Advance Directives * Full Code (Latest Code Status on File) Date Activated Date Inactivated Comments 01/22/2010 8:31 AM 01/23/2010 2:09 PM This order r eflects the patients wishes and were consensually agreed upon. Care Teams Orthopedic Shoe Fitter Relationship Specialty Start Date End Date Rusty Horton MD [address] [place] [address] PCP - General 02 documented as of this encounter
--- OUTSIDE RECORDS SUMMARY | 2024-10-08 23:39 | External Medical Summary ---
Author Name Unknown Address Unknown Organization [id number]:[facility] - [address] [facility] [address] Laboratory Report Ordering Provider Test Date Status SHEMAR ELLISON 07/02/2024 09:56:42 Final Observation Date Value Abnormality Reference (Units ) Status Treponema pallidum Ab [Presence] in Serum by Immunoassay 07/02/2024 09:56:42 Nonreactive Nonreactive Final No serologic evidence of syp hilis. No additional testing clinicially indicated at this time. Consider repeat testing in 2-4 weeks if acute or primary syphilis is suspected. Performing Location LAB[facility]ATORY [facility] - [address] [place] [address]
--- OUTSIDE RECORDS SUMMARY | 2024-10-08 23:39 | External Medical Summary ---
Author Name Unknown Address Unknown Organization K01:LABORATORY C - [address] [place] [address] Laboratory Report Ordering Provider Test Date Status PAULIEN ELLISONAIL 07/02/2024 09:56:42 Final Observation Date Value Abnormality Reference (Units ) Status WBC, Total 07/02/2024 09:56:42 8.90 4.00-10.8 0 (K/uL) Final RBC 07/02/2024 09:56:42 3.97 3.85-5.15 (M/uL) Final Hemoglobin 07/02/2024 09:56:42 12.0 12.0-15.3 (g/dL) Final Anemia reflex testing trigge rs on a HGB < 12.0 for Females and HGB < 13.0 for Males in accordance with the WHO Anemia Guidelines
Anemia reflex testing triggers on a HGB < 12.0 for Females and HGB < 13.0 for Males in accordance with the WHO Anemia Guidelines HCT 07/02/2024 09:56:42 39.3 36.0-45.2 (%) Final MCV 07/02/2024 09:56:42 99.0 81.5-97.5 (fL) Final MCH 07/02/2024 09:56:42 30.2 27.0-34.0 (pg) Final MCHC 07/02/2024 09:56:42 30.5 32.0-36.0 (g/dL) Final RDW 07/02/2024 09:56:42 12.9 11.5-15.5 (%) Final Platelets 07/02/2024 09:56:42 177 140-400 (K /uL) Final MPV 07/02/2024 09:56:42 11.8 6.6-11.1 ( fL) Final Nucleated erythrocytes/100 leukocytes [Ratio] in Blood by Automated count 07/02/2024 09:56:42 0 <=0 (/100 WBCs) [facility] Performing Location [facility] - [address] [facility] [address]
--- OUTSIDE RECORDS SUMMARY | 2024-10-08 23:39 | External Medical Summary | Summary of Care ---
Author Name Unknown Organization [facility] Address [address] [facility] [address] Phone [phone] Care Team Providers Care Center Rep Name Role Phone Rusty Horton MD Primary Care Provider +1- [phone] Reason for Visit * Reason Comments Return Visit Encounter Details Date Type Department Care Team (Late st Contact Info) Description 05/03/2024 8:45 AM EDT Office Visit Gynecology/Obstetric s [facility] [address] [place] [address] BackShoshana starks CRNP [address] [place] [address] Supervision of other normal , antepartum*; Obesity in , antepartum Allergies Active Allergy Reactions Criticality Noted Date Comments Amoxicillin-Pot Clavulanate Hives 08/05/20 21 Dust Other (Please comment) High 07/11/2014 documented as of this encounter (statuses as of 05/03/2024) Medications Medication Sig Dispensed Refills Start Date End Date Status EpiPen 2-Yusuf 0.3 MG/0.3ML Injection Solution Auto-injectorIndic ations:Allergic reaction, initial encounter For a severe reaction: Place orange end against the outer thigh, press firmly, hold in place for 10 seconds and go to the Emergency room. 1 Each 04/05/2022 Active Albuterol Sulfate HFA 108 (90 Base) MCG/ACT Inhalation Aerosol SolutionIndication s:Upper respiratory tract infection, unspecified type,Wheezing Inhale 2 Puffs by mouth every 4 hours as needed for Congestion, Cough or Wheezing. 18 g 09/06/2022 Active Fluticasone Propionate 50 MCG/ACT Nasal Suspension (Flonase)Indicatio ns:Other allergic rhinitis 2 squirts each nostril daily at bedtime 16 g 01/15/2023 Active 28-0.8 MG Oral Tablet Take by mouth. Active Ferrous Sulfate 325 (65 Fe) MG Oral Tablet Delayed Release Take 1 Tablet by mouth in the morning and 1 Tablet at noon and 1 Tablet in the evening. Take with meals. 05/03/2024 Discontinue d (Medication List Clean Up) documented as of this encounter (statuses as of 05/03/2024) Active Problems Problem Noted Date Diagnosed Date Obesity in , antepartum 05/03/2024 Overview: Class 1 The patient's pre-gravid BMI is 30.20. Supervision of other normal , antepartu 03/25/2024 Food insecurity 03/08/2024 Overview: Per Fresh [...] have money to get more. Never true [place] Depression Scale Answer Date Recorded [place] Depression Scale Total 3 03/25/2024 The thought [...] Reading Time Taken Comments Blood Pressure 108/64 05/03/2024 8:47 AM EDT Pulse - - Temperature - - Respiratory Rate - - Oxygen Saturation - - Inhaled Oxygen Concentration - - Weight 85.7 kg (189 lb) 05/03/2024 8:47 AM EDT Height - - Body Mass Index 30.51 02/26/2024 1:15 PM EDT documented in this encounter Progress Notes * Shoshana Menjivar CRNP - 05/03/2024 8:50 AM EDT 17w4d Feeling movement. No bleeding. Occasional side cramp - alleviated if she gets up, drinks/eats. Declines genetic screening. Class 1 obesity - did not have early GTT ordered. Discussed, she will complete this today as she isstaying for her son's pediatric appt. Anatomy scan at 20 weeks - due to work schedule, she wishes to return around 22 wks. Call sooner with any questions/concerns. CLAIRE Walker * Antonette Pressley LPN - 05/03/2024 8:48 AM EDT 17w4d Denies vaginal bleeding/rom + movement documented in this encounter Plan of Treatment Upcoming Encounters Date Type Department Care Team (Late st Contact Info) Description 06/04/2024 9:00 AM EDT Imaging Radiology [facility] [address] [facility] [place] [address] 06/04/2024 10:45 AM EDT Office Visit Gynecology/Obstetrics [address] [place] [address] Jordyn Corbett CRNP [address] [place] [address] Scheduled Orders Name Type Priority Associated Diagnoses Orde r Schedule US PREG SINGLE/1ST GEST, 14 WEEKS OR LATER Medical Imaging Routine Supervision of other normal , antepartum Expected: 05/20/2024 (Approximate), Expires: 06/03/2025 50-G GESTATIONAL GLUCOSE, 1 HOUR Lab Routine Supervision of other normal , antepartum Obesity in , antepartum Expected: 05/03/2024, Expires: 05/03/2025 Health Maintenance Due Date Last Done Comments [...] and were consensually agreed upon. Care Teams Center Rep Relationship Specialty Start Date End Date Rusty Horton MD [address] [place] [address] PCP - General 02 documented as of this encounter
--- OUTSIDE RECORDS SUMMARY | 2024-10-08 23:39 | External Medical Summary | Summary of Care ---
Author Name Unknown Organization [facility] Address [address] [facility] [address] Phone [phone] Care Team Providers Care Mortar Maker Name Role Phone Rusty Horton MD Primary Care Provider +1- [phone] Reason for Visit * Reason Comments Outpatient Testing Encounter Details Date Type Department Care Team (Late st Contact Info) Description 05/03/2024 9:10 AM EDT Laboratory Laboratory, [facility] [address] [facility] 132 [place] [address] Supervision of other normal , antepartum; Obesity [...] have money to get more. Never true [place] Depression Scale Answer Date Recorded [place] Depression Scale Total 3 03/25/2024 The thought [...] No 02/26/2024 Does the household have a [facility] source of income? (Household - for [...] Description 06/04/2024 9:00 AM EDT Imaging Radiology [facility] [address] [place] [address] 06/04/2024 10:45 AM EDT Office Visit [facility] [address] [place] [address] Jordyn Corbett CRNP [address] [place] [address] Pending Results Name Type Priority Associated Diagnoses Date /Time 50-G GESTATIONAL GLUCOSE, 1 HOUR Lab Routine Supervision of other normal , antepartum Obesity in , antepartum 05/03/2024 9:59 AM EDT Health Maintenance Due Date Last Done Comments [...] and were consensually agreed upon. Care Teams Mortar Maker Relationship Specialty Start Date End Date Rusty Horton MD [address] [place] [address] PCP - General 02 documented as of this encounter
--- OUTSIDE RECORDS SUMMARY | 2024-10-08 23:39 | External Medical Summary | Summary of Care ---
Author Name Unknown Organization [facility] Address [address] [facility] [address] Phone [phone] Care Team Providers Care Physical Therapy Technician Name Role Phone Rusty Horton MD Primary Care Provider +1- [phone] Reason for Visit * Reason Comments Return Visit Encounter Details Date Type Department Care Team (Late st Contact Info) Description 07/02/2024 8:30 AM EDT Office Visit Gynecology/Obstetric s [facility]re [facility] [address] [place] [address] Jordyn Corbett CRNP [address] [place] [address] Supervision of other normal , antepartum*; Obesity in , antepartum Allergies Active Allergy Reactions Criticality Noted Date Comments Amoxicillin-Pot Clavulanate Hives 08/05/20 21 Dust Other (Please comment) High 07/11/2014 documented as of this encounter (statuses as of 07/02/2024) Medications Medication Sig Dispensed Refills Start Date [...] as of this encounter (statuses as of 07/02/2024) Active Problems Problem Noted Date Diagnosed Date [...] as of this encounter (statuses as of 07/02/2024) Resolved Problems Problem Noted Date Diagnosed Date [...] as of this encounter (statuses as of 07/02/2024) Immunizations Name Administration Dates Next Due DTaP [...] have money to get more. Never true [place] Depression Scale Answer Date Recorded [place] Depression Scale Total 3 03/25/2024 The thought [...] Sign Reading Time Taken Comments Blood Pressure 100/70 07/02/2024 8:25 AM EDT Pulse - - Temperature - - Respiratory Rate - - Oxygen Saturation - - Inhaled Oxygen Concentration - - Weight 94.8 kg (209 lb) 07/02/2024 8:25 AM EDT Height 167.6 cm (5' 6") 07/02/2024 8:25 AM EDT Body Mass Index 33.73 07/02/2024 8:25 AM EDT documented in this encounter Progress Notes * Jordyn Corbett CRNP - 07/02/2024 8:38 AM EDT 26w1d No concerns. Wants to do Glucola/3rd tri labs today. Will stop at lab. Baby is active. No contractions or bleeding. CLAIRE Gregg documented in this encounter Nursing Notes * Danna Anderson LPN - 07/02/2024 8:30 AM EDT 26w1d documented in this encounter Plan of Treatment Upcoming Encounters Date Type Department Care Team (Late st Contact Info) Description 07/02/2024 9:10 AM EDT [facility] [address] [place] [id number] [facility] [address] [place] [address] Arrived 07/16/2024 8:30 AM EDT Office Visit Gynecology/Obstetrics [facility] [address] [place] [address] Shoshana Menjivar CRNP [address] [place] [address] 07/30/2024 8:30 AM EDT Office Visit [facility] [address] [place] [address] Jordyn Corbett SORTING LIVESTOCK WORKER [address] [place] [address] 08/13/2024 8:30 AM EST [facility] [address] [place] [address] Jordyn Corbett SORTING LIVESTOCK WORKER [address] [place] [address] 09/10/2024 8:30 AM EST [facility] [address] [place] [address] Jordyn Corbett SORTING LIVESTOCK WORKER [address] [place] [address] 09/17/2024 8:30 AM EST [facility] [address] [place] [address] Jordyn Corbett SORTING LIVESTOCK WORKER [address] [place] [address] 09/24/2024 8:30 AM EST [facility] [address] [place] [address] Jordyn Corbett SORTING LIVESTOCK WORKER [address] [place] [address] 10/01/2024 8:30 AM EST [facility] [address] [place] [address] Jordyn Corbett SORTING LIVESTOCK WORKER [address] [place] [address] Scheduled Orders Name Type Priority Associated Diagnoses Orde r Schedule CBC WITH WBC DIFFERENTIAL AND ANEMIA REFLEX WORKUP Lab Routine Supervision of other normal , antepartum Expected: 07/16/2024 (Approximate), Expires: 07/02/2025 SYPHILIS ANTIBODY SCREEN WITH REFLEX TO RPR Lab Routine Supervision of other normal , antepartum Expected: 07/16/2024 (Approximate), Expires: 07/02/2025 50-G GESTATIONAL GLUCOSE, 1 HOUR Lab Routine Supervision of other normal , antepartum Expected: 07/16/2024, Expires: 07/02/2025 Health Maintenance Due Date Last Done Comments [...] and were consensually agreed upon. Care Teams Physical Therapy Technician Relationship Specialty Start Date End Date Rusty Horton MD [address] [facility] [place] [address] PCP - General 02 documented as of this encounter
--- OUTSIDE RECORDS SUMMARY | 2024-10-08 23:39 | External Medical Summary | Summary of Care ---
Author Name Unknown Organization [facility] Address [address] [facility] [address] Phone [phone] Care Team Providers Care Email Marketing Executive Name Role Phone Rusty Horton MD Primary Care Provider +1- [phone] Reason for Visit * Reason Comments Outpatient Testing Encounter Details Date Type Department Care Team (Late st Contact Info) Description 07/02/2024 9:10 AM EDT Laboratory Laboratory, [facility] [address] [facility] 132 [place] [address] Supervision of other normal , antepartum Allergies Active Allergy Reactions Criticality [...] have money to get more. Never true [place] Depression Scale Answer Date Recorded [place] Depression Scale Total 3 03/25/2024 The thought [...] No 02/26/2024 Does the household have a [facility]? (Household - [...] Care Team (Late st Contact Info) Description 07/16/2024 8:30 AM EDT Office Visit Gynecology/Obstetrics [facility] [address] [place] [address] Backer, CLAIRE Velásquez [address] [place] [address] 07/30/2024 8:30 AM EDT Office Visit Gynecology/Obst[facility]s [facility] [address] [place] [address] Jordyn Corbett CRNP [address] [place] [address] 08/13/2024 8:30 AM EST Office Visit Gynecology/Obstetrics [facility] [address] [place] [address] Jordyn Corbett CRNP [address] [place] [address] 09/10/2024 8:30 AM EST Office Visit Gynecology/Obstetrics [facility] [address] [place] [address] Jordyn Corbett CRNP [address] [place] [address] 09/17/2024 8:30 AM EST Office Visit Gynecology/Obstetrics [facility] [address] [place] [address] Jordyn Corbett CRNP [address] [place] [address] 09/24/2024 8:30 AM EST Office Visit [facility]necology/[facility]st[facility]s [facility] [address] [place] [address] Jordyn Corbett CRNP [address] [place] [address] 10/01/2024 8:30 AM EST Office Visit Gynecology/Obstetrics Deidre Mueller [address] [place] [address] Aric Jordyn IsidroCLAIRE [address] [place] [address] Pending Results Name Type Priority Associated Diagnoses Date /Time CBC WITH WBC DIFFERENTIAL AND ANEMIA REFLEX WORKUP Lab Routine Supervision of other normal , antepartum 07/02/2024 9:56 AM EDT SYPHILIS ANTIBODY SCREEN WITH REFLEX TO RPR Lab Routine Supervision of other normal , antepartum 07/02/2024 9:56 AM EDT 50-G GESTATIONAL GLUCOSE, 1 HOUR Lab Routine Supervision of other normal , antepartum 07/02/2024 9:56 AM EDT ANEMIA CBC Lab Routine Supervision of other normal , antepartum 07/02/2024 9:56 AM EDT DIFFERENTIAL, AUTOMATED Lab Routine Supervision of other normal , antepartum 07/02/2024 9:56 AM EDT ANEMIA REFLEX CHEMISTRY HOLD Lab Routine Supervision of other normal , antepartum 07/02/2024 9:56 AM EDT SYPHILIS ANTIBODY SCREEN Lab Routine Supervision of other normal , antepartum 07/02/2024 9:56 AM EDT Health Maintenance Due Date Last [...] Diagnosis Supervision of other normal , antepartum documented in this encounter Advance Directives * Full Code (Latest Code Status on File) Date Activated Date Inactivated Comments 01/22/2010 8:31 AM 01/23/2010 2:09 PM This order r eflects the patients wishes and were consensually agreed upon. Care Teams Email Marketing Executive Relationship Specialty Start Date End Date Rusty Horton MD [address] [place] [address] PCP - General 02 documented as of this encounter
--- OUTSIDE RECORDS SUMMARY | 2024-10-08 23:39 | External Medical Summary | Summary of Care ---
Author Name Unknown Organization [facility] Address [address] [facility] [address] Phone [phone] Care Team Providers Care Kiln Drawer Name Role Phone Rusty Horton MD Primary Care Provider +1- [phone] Reason for Visit * Reason Comments Outpatient Testing Encounter Details Date Type Department Care Team (Late st Contact Info) Description 05/03/2024 10:40 AM EDT Laboratory Laboratory, [facility] [address] [facility] 132 [place] [address] Arrived Allergies Active Allergy Reactions Criticality Noted Date [...] have money to get more. Never true [place] Depression Scale Answer Date Recorded [place] Depression Scale Total 3 03/25/2024 The thought [...] No 02/26/2024 Does the household have a [facility]? (Household - for ages [...] Description 06/04/2024 9:00 AM EDT Imaging Radiology [facility] [address] [place] [address] 06/04/2024 10:45 AM EDT Office Visit Gynecology/Obstetrics [facility] [address] [place] [address] Jordyn Corbett CRNP [address] [place] [address] Health Maintenance Due Date Last Done Comments [...] and were consensually agreed upon. Care Teams Kiln Drawer Relationship Specialty Start Date End Date Rusty Horton MD [address] [facility] [place] [address] PCP - General 02 documented as of this encounter
--- OUTSIDE RECORDS SUMMARY | 2024-10-08 23:39 | External Medical Summary ---
Author Name Unknown Address Unknown Organization K0G:LABORATORY [facility] [place] [address] - [address] [place] [address] Laboratory Report Ordering Provider Test Date Status SHEMAR ELLISON 07/02/2024 09:56:42 Final Observation Date Value Abnormality Reference (Units ) Status Glucose [Moles/volume] in Serum or Plasma --1 hour post 50 g glucose PO 07/02/2024 09:56:42 72 70-129 (mg/dL) Final Performing Location LAB[facility]ORY [facility] [place] [address] - [address] [place] [address]
--- OUTSIDE RECORDS SUMMARY | 2024-10-08 23:39 | External Medical Summary | Summary of Care ---
Author Name Unknown Organization [facility] Address [address] [place] [address] Phone [phone] Care Team Providers Care Air Drier Name Role Phone Rusty Horton MD Primary Care Provider [phone]- [phone] Reason for Visit * Reason Comments Return Visit Encounter Details Date Type Department Care Team (Late st Contact Info) Description 06/04/2024 10:45 AM EDT Office Visit Gynecology/Obstetric s [facility] [address] [place] [address] Jordyn Corbett CRNP [address] [place] [address] Supervision of other normal , antepartum*; Obesity in , antepartum Allergies Active Allergy Reactions Criticality Noted Date Comments Amoxicillin-Pot Clavulanate Hives 08/05/20 21 Dust Other (Please comment) High 07/11/2014 documented as of this encounter (statuses as of 06/04/2024) Medications Medication Sig Dispensed Refills Start Date [...] as of this encounter (statuses as of 06/04/2024) Active Problems Problem Noted Date Diagnosed Date [...] as of this encounter (statuses as of 06/04/2024) Resolved Problems Problem Noted Date Diagnosed Date [...] as of this encounter (statuses as of 06/04/2024) Immunizations Name Administration Dates Next Due DTaP Dipth/Tet/Acell Pertussis (Infanrix), Peds 11/17/2007 HPV Vaccine, 9-Valent 12/03/2017,06/03/2017 IPV - Polio Virus Vaccine (Inact) 11/17/2007 MMR-ALBERT - Measles/Mumps/Rubella/Varicella Vaccin e 11/17/2007 Meningococcal Conjugate Vaccine (Menactra/Menveo ) 05/04/2014 Meningococcal MCV4O Conjugate Vaccine (Menveo) 0 11/17/2019 PPD 08/19/2023,05/05/2021 Seasonal Influenza, PF, 6 M & above, IM , (FluLaval or Fluzone) 07/22/2018 Seasonal Influenza, Trivalen t, (IIV3), with Preserv, (Fluzone) 07/16/2014 07/16/2015 TDAP (age 10 and older)(Boostrix) [...] have money to get more. Never true Huntington Depression Scale Answer Date Recorded Huntington Depression Scale Total 3 03/25/2024 The thought [...] Sign Reading Time Taken Comments Blood Pressure 110/68 06/04/2024 10:40 AM EDT Pulse - - Temperature - - Respiratory Rate - - Oxygen Saturation - - Inhaled Oxygen Concentration - - Weight 88.8 kg (195 lb 12.8 oz) 024 10:40 AM EDT Height - - Body Mass Index 31.6 02/26/2024 1:15 PM EDT documented in this encounter Progress Notes * Jordyn Corbett CRNP - 06/04/2024 10:47 AM EDT 22w1d Complaints: none Feeling well overall. +FM. No contractions, bleeding, or LOF. Anatomy u/s today, formal report pending. +cardiac activity. CLAIRE Gregg * Carleen Pike CMA - 06/04/2024 10:40 AM EDT 22w1d Occasional nausea/vomiting/headache. Symptoms do go away on their own. documented in this encounter Plan of Treatment Upcoming Encounters Date Type Department Care Team (Late st Contact Info) Description 07/02/2024 8:30 AM EDT [facility] [address] [place] [address] Jordyn Corbett CRNP [address] [place] [address] 07/16/2024 8:30 AM EDT [facility] [address] [place] [address] Shoshana Menjivar CRNP [address] [place] [address] 07/30/2024 8:30 AM EDT Office Visit [facility] [address] [place] [address] Jordyn Corbett [employer] [address] [place] [address] 08/13/2024 8:30 AM EST Office Visit [facility]cology[facility]s [facility] [address] [place] [address] Jordyn Corbett, [employer] [address] [place] [address] 08/27/2024 8:30 AM EST Office Visit [facility] [address] [place] [address] Jordyn Corbett CRNP [address] [place] [address] 09/10/2024 8:30 AM EST Office Visit [facility]cology[facility] [address] [place] [address] Jordyn Corbett [employer] [address] [place] [address] 09/17/2024 8:30 AM EST Office Visit [facility]cology[facility] [address] [place] [address] Jordyn Corbett [employer] [address] [place] [address] 09/24/2024 8:30 AM EST Office Visit [facility]cology[facility] [address] [place] [address] Jordyn Corbett [employer] [address] [place] [address] 10/01/2024 8:30 AM EST Office Visit Gynecology/Obstetrics [facility] [address] [place] [address] Jordyn Corbett CRNP [address] [place] [address] Health Maintenance Due Date Last Done Comments [...] and were consensually agreed upon. Care Teams Air Drier Relationship Specialty Start Date End Date Rusty Horton MD [address] [place] [id number] PCP - General 02 documented as of this encounter
[2024-10-09] MEDS ORDERED: bisacodyL 10 MG SUPP PR PRN (02:24)
[2024-10-09] MEDS ORDERED: FLUTICASONE PROPIONATE NA SPR 16 GM BTL PRN (02:24)
[2024-10-09] MEDS ORDERED: OXYTOCIN 30 UNITS/NSS 30 UNITS/500 ML BAG IV PRN (02:24)
[2024-10-09] MEDS ORDERED: HYDROCORTISONE ACETATE 25 MG SUPP PR PRN (02:24)
[2024-10-09] MEDS ORDERED: ALBUTEROL HFA 8 GM INHALER INH PRN (02:24)
[2024-10-09] MEDS ORDERED: BENZOCAINE 20% SPRY 85 APPLN/85 GM CAN EXT PRN (02:24)
--- NOTE | 2024-10-09 02:27 | Delivery Summary ---
Vaginal Delivery Summary Date of Service October 09, 2024 Vaginal Delivery Summary live female ANNALISA over intact perineum with nuchal cord x1 reduced at delivery of head. Delayed cord clamping with Apgars 8/9 weight pending. Cord blood obtained followed by spontaneous delivery of intact placenta. No tears. QBL 100 ml. Final sponge and instrument count are correct. Mom and baby stable.
[2024-10-09] MEDS: ACETAMINOPHEN 325 MG TAB PO PRN (06:27)
[2024-10-09] MEDS: IBUPROFEN 600 MG TAB PO PRN (08:18)
[2024-10-09] MEDS: PRENATAL VITAMIN 1 TAB PO SCH (08:22)
[2024-10-09] MEDS: FERROUS SULFATE 325 MG TAB PO SCH (08:22)
[2024-10-09] MEDS: DOCUSATE SODIUM 100 MG CAP PO SCH (08:22)
[2024-10-09] MEDS: ONDANSETRON INJ 2 MG/ML 2 ML VIAL IV PRN (08:50)
[2024-10-09] MEDS ORDERED: NON-FORMULARY MEDICATION (Prenat.Vits,Cal,Min-Iron-Folic Tablet) PO SCH (09:00)
--- NOTE | 2024-10-09 09:29 | Anesthesia Procedure Note ---
Date of Service October 09, 2024 Anesthesia Post Epidural Note Vital Signs Vital Signs: Temp Pulse Resp BP Pulse Ox O2 Del Method 36.6 C 98 H 16 119/78 99 Room Air 10/09/24 07:30 10/09/24 07:30 10/09/24 07:30 10/09/24 07:30 10/09/24 07:30 10/09/24 07:30 Pain Intensity Perineal: Pain Intensity: 2 Notes Mental Status: alert / awake / arousable Nausea / Vomiting: adequately controlled Pain: adequately controlled Airway Patency, RR, SpO2: stable & adequate BP & HR: stable & adequate Hydration State: stable & adequate Neuraxial Anesthesia: was administered and sensory block is resolving Anesthetic Complications: no major complications apparent Epidural: Removed without complications and With tip intact
[2024-10-09] MEDS: DIPHTHER/TETAN/PERTUS Vaccine (Tdap, Adol/Adult) 0.5mL IM ONE (21:24)
[2024-10-10 00:18] VITALS: TEMP 98.2
[2024-10-10 06:46] LABS: Hematocrit (blood only) 32.8 % (37.0-47.0); Hemoglobin 10.7 g/dl (12.0-16.0); Mean Corpuscular Hemoglobin 29.6 pg (25.0-34.0); Mean Corpuscular Hgb Conc 32.6 g/dL (32.0-36.0); Mean Corpuscular Volume 90.6 fL (80.0-100.0); Mean Platelet Volume 11.2 fL (9.4-12.4); Platelet Count 149 K/uL (130-400); RDW Coefficient of Variation 12.6 % (11.5-14.5); RDW Standard Deviation 41.4 fL (36.4-46.3); Red Blood Count 3.62 M/uL (4.20-5.40); White Blood Count 8.12 K/ul (4.8-10.8)
[2024-10-10 07:46] VITALS: BP 110/73; RESP 16; O2SAT 99
--- NOTE | 2024-10-10 07:52 | Obstetrical Progress Note ---
Date of Service October 10, 2024 Assessment & Plan Admission and Anticipated Discharge Date Admission Date: October 08, 2024 Subjective Patient is seen and examined. She feels well, no complaints. Ambulating without dizziness Voiding without difficulty Tolerating regular diet with out N&V Bleeding is minimal No fever/ chills/ CP/ SOB/ N&V/ Leg pain Breast feeding without problems Vital Signs Temp Pulse Pulse Resp BP Pulse Ox O2 Del Method 10/10/24 07:44 36.8 C 70 16 110/73 99 Room Air 10/09/24 23:50 36.8 C 72 18 110/71 98 Room Air 10/09/24 20:30 Room Air 10/09/24 20:30 36.7 C 71 18 118/78 96 Room Air Lab Results 10/08/24 10/10/24 Range/Units 15:33 06:19 WBC 10.55 8.12 (4.8-10.8) K/ul RBC 3.77 L 3.62 L (4.20-5.40) M/uL Hgb 11.0 L 10.7 L (12.0-16.0) g/dl Hct 33.4 L 32.8 L (37.0-47.0) % MCV 88.6 90.6 (80.0-100.0) fL MCH 29.2 29.6 (25.0-34.0) pg MCHC 32.9 32.6 (32.0-36.0) g/dL RDW Std Deviation 40.2 41.4 (36.4-46.3) fL RDW Coeff of Ethan 12.5 12.6 (11.5-14.5) % Plt Count 166 149 (130-400) K/uL MPV 11.0 11.2 (9.4-12.4) fL Treponema pallidum Ab Negative (Negative) Blood Type A Positive Antibody Screen NEGATIVE PE: General: Alert, orientedx3, NAD Abd: soft, NT, fundus firm, below Umbilicus Perineum intact, Lochia rubra minimal Ext; NT, no edema AP: 24 yo s/p , ppd# 1 VSS Afebrile doing well Desires d/c today Continue routine care All questions were answered D/C home , f/u in office Results & Data Vital Signs (Past 12 Hours) Vital Signs Temp Pulse Pulse Resp BP Pulse Ox O2 Del Method 10/10/24 07:44 36.8 C 70 16 110/73 99 Room Air 10/09/24 23:50 36.8 C 72 18 110/71 98 Room Air 10/09/24 20:30 Room Air 10/09/24 20:30 36.7 C 71 18 118/78 96 Room Air
[2024-10-10 11:56] VITALS: PULSE 75
[2024-10-10] MEDS ORDERED: bisacodyL 5 MG TABEC PO SCH (20:00)
== END 2024-10-10 12:48 | disposition home health service (06) | DRG 807 ==
LOC: 4S1 14:42 → 4E2 10-09 05:12